=== PATIENT | male | born 1960 | race Caucasian/White ===

== ENCOUNTER 2018-09-11 12:25 | Inpatient (IN) | payer OTHER ==
[~2018-09-11] VITALS: Ht 170.2 cm; Wt 89.0 kg
--- NOTE | 2018-09-11 12:32 | ERD ---
ER Documentation Chief Complaint Chief Complaint cp HPI The patient is a 58-year-old male, presenting to the ER from outpatient [facility] surgery. The surgery completed about 1130am when he woke up with right- sided chest pain, denies similar symptoms previously. He denies chest pain with vomiting/radiation/exertion/diaphoresis, dyspnea, abdominal pain, vomiting, dysuria, diarrhea. He was well prior to surgery. He used to smoke until a year ago Past medical history: CAD, hypertension, dyslipidemia, right ankle fracture Past surgical history: 2 stent PCI, last stent was December 2016, appendectomy ROS All systems reviewed and are negative except as per history of present illness. Medications Home Meds Reported Medications Metoprolol Succinate* (Toprol XL*) 25 Mg Tab.sr.24h, 25 MG PO DAILY, #30 TAB 09/11/18 Clopidogrel Bisulfate* (Clopidogrel Bisulfate*) 75 Mg Tablet, 75 MG PO DAILY, #30 TAB 09/11/18 Atorvastatin Calcium* (Atorvastatin Calcium*) 20 Mg Tablet, 20 MG PO QHS, #30 TAB 09/11/18 Amlodipine Besylate* (Norvasc*) 5 Mg Tablet, 5 MG PO DAILY, TAB 09/11/18 Aspirin* (Aspirin* Chew) 81 Mg Tab.chew, 81 MG PO DAILY, TAB.CHEW 09/11/18 Lisinopril* (Lisinopril*) 20 Mg Tablet, 20 MG PO DAILY, #30 TAB 09/11/18 Allergies Allergies: Coded Allergies: No Known Allergy (Unverified , 09/11/18) Physical Exam Vitals Vital Signs Date Temp Pulse Resp B/P (MAP) Pulse Ox O2 O2 Flow FiO2 Time Delivery Rate 09/11/18 68 12 122/92 98 Room Air 14:00 (102) 09/11/18 68 15 127/92 98 Room Air 12:35 (104) 09/11/18 97.8 65 17 144/88 99 12:31 (106) Physical Exam Const: No acute distress. Head: Atraumatic. Eyes: Normal Conjunctiva. ENT: Normal External Ears, Nose and Mouth. Neck: Full range of motion. No meningismus. Resp: Clear to auscultation bilaterally. Cardio: Regular rate and rhythm. Abd: Soft, non distended, normal bowel sounds, non tender. Skin: No petechiae or rashes. Back: No midline or flank tenderness. Ext: Shoulder is immobilized, right leg with immobilizer Neur: Awake and alert. No focal deficit Psych: Normal Mood and Affect. Result Diagram: 09/11/18 1257 09/11/18 1257 Results 24 hrs Laboratory Tests Test 09/11/18 12:57 White Blood Count 12.3 10^3/ul Red Blood Count 4.67 10^6/ul Hemoglobin 14.0 g/dl Hematocrit 41.6 % Mean Corpuscular Volume 89.1 fl Mean Corpuscular Hemoglobin 30.0 pg Mean Corpuscular Hemoglobin Concent 33.7 g/dl Red Cell Distribution Width 12.5 % Platelet Count 209 10^3/UL Mean Platelet Volume 9.4 fl Immature Granulocytes % 0.400 % Neutrophils % 81.8 % Lymphocytes % 11.1 % Monocytes % 4.9 % Eosinophils % 1.6 % Basophils % 0.2 % Nucleated Red Blood Cells % 0.0 /100WBC Immature Granulocytes # 0.050 10^3/ul Neutrophils # 10.0 10^3/ul Lymphocytes # 1.4 10^3/ul Monocytes # 0.6 10^3/ul Eosinophils # 0.2 10^3/ul Basophils # 0.0 10^3/ul Nucleated Red Blood Cells # 0.0 10^3/ul D-Dimer 941.35 ng/ml D-Dimer Comment Sodium Level 141 mmol/L Potassium Level 4.7 mmol/L Chloride Level 107 mmol/L Carbon Dioxide Level 25 mmol/L Anion Gap 9 Blood Urea Nitrogen 19 mg/dl Creatinine 1.19 mg/dl Est Glomerular Filtrat Rate mL/min > 60 mL/min Glucose Level 112 mg/dl Calcium Level 9.5 mg/dl Troponin I < 0.012 ng/ml Procedures/[place] [address] Radiology Main Line: [phone] DIAGNOSTIC IMAGING REPORT Patient: TAYLOR EMERSON : 1960 Age: 58 Sex: M MR #: [id number] DOS: 09/11/18 1406 Ordering MD: KORI LEIJA MD Location: E/R Room/Bed: PROCEDURE: CTA Chest and pulmonary angiogram. CLINICAL INDICATION: Chest pain and shortness of breath TECHNIQUE: CTA scan of the chest and CT pulmonary angiogram was performed on a multidetector high-resolution CT scanner. Coronal and sagittal reformatted images were obtained. Three-dimensional post-processing, including maximum intensity projection, was performed. The patient was scanned following the uncomplicated intravenous administration of 100 cc of Omnipaque 350 contrast. DICOM images are available. CTDIvol 146.59 mGy, and DLP 824.82 mGy.cm. One or more of the following dose reduction techniques were used: - Automated exposure control. - Adjustment of the mA and/or kV according to patient size. - Use of iterative reconstruction technique. COMPARISON: DR MISHRA 09/11/2018 FINDINGS: CT CHEST: Lungs: Mild bronchial prominence of the lower lobes. Diffuse mild bronchial wall thickening, likely chronic inflammatory changes. Pleura: Normal. Mediastinum: No mediastinal masses. Cardiovascular: There are calcifications of the coronary arteries and thoracic aorta. Lymph nodes: No enlarged lymphadenopathy. Small calcification of the subcarinal lymph node, likely sequela of prior granulomatous disease.. Musculoskeletal: Degenerative changes of the spine. Upper abdomen: Normal. CT PULMONARY ANGIOGRAM: Pulmonary arteries: Normal caliber of the pulmonary arteries. No evidence of pulmonary embolism. IMPRESSION: 1. No evidence of pulmonary embolism. 2. Mild bronchial prominence of the bilateral lower lobes. Diffuse mild bronchial wall thickening. Findings likely related to chronic inflammatory changes. 3. Coronary artery calcifications. 4. No evidence of thoracic aortic aneurysm or dissection. RPTAT: AA Physician Rakesh Date Time Electronically viewed and signed by Miguel Vargas Physician on 09/11/2018 15:52 HtN/ CC: KORI LEIJA MD [id number] [place] [address] Radiology Main Line: [phone] DIAGNOSTIC IMAGING REPORT Patient: TAYLOR EMERSON : 1960 Age: 58 Sex: M MR #: [id number] DOS: 09/11/18 1238 Ordering MD: KORI LEIJA MD Location: E/R Room/Bed: PROCEDURE: XR Chest. CLINICAL INDICATION: Chest pain TECHNIQUE: Single portable view of the chest was obtained COMPARISON: None FINDINGS: The study is limited due to patient rotation. There is apparent enlargement of the cardiac silhouette. There is questionable widening of the superior mediastinum. The lungs are clear. There is no pleural effusion or pneumothorax. RPTAT: AA IMPRESSION: Limited study due to patient positioning and rotation. Questionable widening of the superior mediastinum. Possible mild cardiomegaly. Repeat study with a proper frontal view is recommended. .Taye Perkins MD, Date Time Electronically viewed and signed by .Taye Perkins MD, MD on 09/11/2018 13:12 .S/ CC: KORI LEIJA MD [phone] EKG: Read by emergency physician Rate/Rhythm: Normal Sinus Rhythm 66 beats/min QRS, ST, T-waves: No ST elevation, no T inversion, septal q's Impression: abnormal EKG MEDICAL MAKING DECISION: The patient is a 58 male, presented with acute chest pain, concerning for acute ACS, was treated with aspirin 160 mg p.o. for acute chest pain with good response. The differential diagnoses considered include but are not limited to postop pain, acute coronary syndrome, acute myocardial infarction, pericarditis, pulmonary embolism, aortic dissection, pneumonia, pleural effusion, pneumothorax, GERD, chest wall pain. Departure Diagnosis: Primary Impression: Chest pain Condition: Stable Comments I discussed the findings with the patient. I discussed the patient with the hospitalist Dr Torres who was made aware of the lab, the treatment, the patient condition. The patient is admitted to [facility] Disclaimer: Inadvertent spelling and grammatical errors are likely due to EHR/dictation software use and do not reflect on the overall quality of patient care. Also, please note that the electronic time recorded on this note does not necessarily reflect the actual time of the patient encounter. KORI LEIJA MD Sep 11, 2018 12:32
[2018-09-11] MEDS ORDERED: LISI-471 PO (14:09)
[2018-09-11] MEDS ORDERED: AMLO5TAB4 PO (14:09)
[2018-09-11] MEDS ORDERED: ASPI-903 PO (14:09)
[2018-09-11] MEDS ORDERED: ATOR20TA38 PO (14:10)
[2018-09-11] MEDS ORDERED: CLOP75TA19 PO (14:10)
[2018-09-11] MEDS ORDERED: METO-335 PO (14:11)
[2018-09-11] MEDS ORDERED: ASPIRIN 81 MG TAB PO ONE (15:00)
[2018-09-11] MEDS ORDERED: IOHEXOL 100 ML ONE (15:17)
[2018-09-11] MEDS ORDERED: SOD CHLORIDE 0.9% 100 ML ONE (15:17)
--- NOTE | 2018-09-11 15:32 | QN ---
Documentation Comment SEEN AND EXAMINED JENNIFER ALVAREZ MD Sep 11, 2018 15:32
[2018-09-11] MEDS ORDERED: DOCUSATE SODIUM 100 MG CAP PO PRN (16:00)
[2018-09-11] MEDS ORDERED: NACL 0.9% 3 ML SYG IV SCH (16:00)
[2018-09-11] MEDS ORDERED: ACETAMINOPHEN 325 MG TAB PO PRN (16:00)
[2018-09-11] MEDS ORDERED: ONDANSETRON 4 MG INJ IV PRN (16:00)
--- NOTE | 2018-09-11 16:02 | HP ---
DATE OF ADMISSION: 09/11/2018 REASON FOR ADMISSION: Chest pain. 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 The patient had a fall from a ladder 1 month ago. After that, he had an injury on the right ankle and also on the left elbow. The patient sustained an Achilles tendon injury on the right ankle and also had a left elbow injury. Patient said that he had to stop the Plavix 4 days before he went for surgery. Today, patient went for his elbow surgery with Dr. Sharma. He received anesthesia. The minute he woke up, he started having right-sided chest pain radiating to the right arm. lasting for few miinutes The patient denied any shortness of breath, any cough, any fevers and chills and was sent into the Emergency Department for further evaluation. Patient denies any orthopnea, PND, lower extremity edema. The patient said that he has been mostly sedentary since the injury about a month ago. PAST MEDICAL HISTORY: 1. Hypertension. 2. Hyperlipidemia. 3. Coronary artery disease, status post stents x3 in 2017 at [facility]. ALLERGIES: NONE. PAST SURGICAL HISTORY: Three stent PCI. Last stent was in December 2016, appendectomy. SOCIAL HISTORY: Used to smoke a year ago. Occasionally drinks alcohol. Denies any recreational drug use. MEDICATIONS TAKING AT HOME: 1. Aspirin 81. 2. Plavix 75 was stopped 4 days ago. 3. Norvasc 5. 4. Atorvastatin 20. 5. Lisinopril 20. 6. Metoprolol 25 daily. REVIEW OF SYSTEMS: The patient complained of right-sided chest pain like a pinching kind of pain radiating to the right shoulder. Denied any shortness of breath, any cough, any orthopnea, PND, lower extremity edema. Patient has injury to the right Achilles tendon and also had left elbow surgery today. Denies any hematemesis, any melena or blood per rectum. Denies any dizziness. PHYSICAL EXAMINATION: VITAL SIGNS: Currently, blood pressure 127/92, afebrile. Her respiratory rate 15, saturating 98%. GENERAL: The patient is awake, alert, oriented, does not appear to in any acute distress. HEENT: Pupils equal, round, react to light. NECK: Supple. No JVD. HEART: Regular rate and rhythm. LUNGS: Clear to auscultation bilaterally. ABDOMEN: Soft, nontender, nondistended, positive normoactive bowel sounds. EXTREMITIES: The patient has right lower extremity in cast and left elbow status post surgery. DIAGNOSTIC DATA: BMP within normal limit. Troponin less than 0.012. LABORATORY DATA: White count of 12.3, hemoglobin 14.0, platelet count 209. D- dimer is 941. Chest x-ray, some widening of superior mediastinum possible mild cardiomegaly. EKG: No acute ST-T wave changes. ASSESSMENT AND PLAN: This is a 58-year-old male who presented with: 1. Right-sided chest pain, status post left elbow surgery today. The patient has received general anesthesia. D-dimer is elevated. Need to rule out for pulmonary embolism. The patient also has history of coronary artery disease. Body was under stress after general anesthesia today. Need to rule out if patient had underlying ACS 2. Mild leukocytosis.? stress 3. Right achilles tendon injury s/p fall. 4. Left elbow surgery.on 09/11/18 5. Hypertension. 6. Hyperlipidemia. PLAN: At this period of time, the patient is admitted to telemetry. We will continue the patient on aspirin, not sure if patient can be restarted back on Plavix given the surgery today. CT angio is pending. Cardiology consultation will be obtained. Will get echo and serial troponins. We will also try to see if Ortho is available in this hospital. Rest of the treatment will depend on the patient's hospitalization course. Dictated By: JENNIFER MELVIN/PREMA Conf#: [id number] DID#: [id number] MTDD
[2018-09-11] MEDS: HYDROCODONE/APAP (5/325) TAB PO PRN ×2 (18:02→23:51)
[2018-09-11 19:43] VITALS: Ht 170.2 cm; Wt 89.0 kg
[2018-09-11 20:00] VITALS: BP 121/77; PULSE 72; PULSE 78; RESP 18
[2018-09-11] MEDS: ATORVASTATIN 20 MG TAB PO SCH (22:13)
[2018-09-12] VITALS (11 sets, daily range): BP systolic 118–179; BP diastolic 79–93; PULSE 66–84; RESP 18
[2018-09-12] MEDS ORDERED: ZOLPIDEM 5 MG TAB PO PRN (01:30)
[2018-09-12] MEDS: HYDROCODONE/APAP (5/325) TAB PO PRN (05:33)
[2018-09-12] MEDS: PANTOPRAZOLE (EC) 40 MG TAB PO SCH (05:33)
[2018-09-12] MEDS: morphine 2 MG INJ IV PRN ×2 (08:30→15:17)
[2018-09-12] MEDS: AMLODIPINE 5 MG TAB PO SCH (08:30)
[2018-09-12] MEDS: LISINOPRIL 20 MG TAB PO SCH (08:30)
[2018-09-12] MEDS: METOPROLOL (XL) 25 MG TAB PO SCH (08:30)
--- NOTE | 2018-09-12 12:57 | RADRPT ---
Vent Rate: 80 bpm RR Interval: 0 msec RI Interval: 164 msec QRS Duration: 84 msec QT Interval: 394 msec QTC Interval: 454 msec P-R-T [place]: 56 - 10 - 86 degrees Normal sinus rhythm Septal infarct , age undetermined Abnormal ECG Electronically Signed By: Juan Wesley
[2018-09-12] MEDS: SOD CHLORIDE 0.9% 1,000 ML IV SCH (13:27)
--- NOTE | 2018-09-12 13:46 | PN ---
Date/Time of Note Date/Time of Note DATE: 09/12/18 TIME: 13:43 Assessment/Plan VTE [place]axis [place] [facility] [place]: 11 [place]CD [place] [facility] [place] SCD contraindicated: low risk/ambulating Pharmacological prophylaxis: NA/contraindicated Pharm contraindication: low risk/ambulating Lines/Catheters IV C[facility] Type [facility]from [facility] Saline Lock Assessment/Plan Hospital Course 58-year-old male who presented with: 1. Right-sided chest pain, status post left elbow surgery on 09/11/18 The patient has received general anesthesia. D-dimer is elevated. CT ANGIO neg for PE . The patient also has history of coronary artery disease. Need to rule out if patient had underlying ACS. Trop neg so far 2. Mild leukocytosis. 3. Right ankle injury status post fall 4. Left elbow surgery.fall 5. Hypertension. 6. Hyperlipidemia. 7 Mild Rhabdo Plan - iv fluids - pain control - cw ASA/Plavix/statin/MTP - stress test tmw per cards - cw amlodipine/lisnopril - GI/DVT prophlyaxsis Result Diagram: 09/11/18 1257 09/11/18 1257 Results 24hrs Laboratory Tests Test 09/11/18 18:55 09/11/18 21:14 09/12/18 05:28 Creatine Kinase 1099 H 1313 H 1592 H Creatine Kinase Index 0.1 0.1 0.1 Creatinine Kinase MB (Mass) 1.07 1.11 1.80 Troponin I < 0.012 < 0.012 < 0.012 Phosphorus Level 4.3 Magnesium Level 2.1 Triglycerides Level 127 Cholesterol Level 151 LDL Cholesterol, Calculated 89 HDL Cholesterol 37 Cholesterol/HDL Ratio 4.0 Subjective 24 Hr Interval Summary Free Text/Dictation no cp pain in elbow Exam/Review of Systems Exam Vitals Vital Signs Date Temp Pulse Resp B/P (MAP) Pulse Ox O2 O2 Flow FiO2 Time Delivery Rate 09/12/18 78 12:50 09/12/18 98.7 18 127/91 97 11:29 (103) 09/11/18 Room Air 18:00 Intake and Output 09/11/18 09/11/18 09/12/18 1515:00 23:00 07:00 IntakeIntake Total 500 ml BalanceBalance 500 ml Exam ENERAL: The patient is awake, alert, oriented, does not appear to in any acute distress. HEENT: Pupils equal, round, react to light. NECK: Supple. No JVD. HEART: Regular rate and rhythm. LUNGS: Clear to auscultation bilaterally. ABDOMEN: Soft, nontender, nondistended, positive normoactive bowel sounds. EXTREMITIES: The patient has right lower extremity in cast now off and left elbow status post surgery. Results Results 24hrs Laboratory Tests Test 09/11/18 18:55 09/11/18 21:14 09/12/18 05:28 Creatine Kinase 1099 H 1313 H 1592 H Creatine Kinase Index 0.1 0.1 0.1 Creatinine Kinase MB (Mass) 1.07 1.11 1.80 Troponin I < 0.012 < 0.012 < 0.012 Phosphorus Level 4.3 Magnesium Level 2.1 Triglycerides Level 127 Cholesterol Level 151 LDL Cholesterol, Calculated 89 HDL Cholesterol 37 Cholesterol/HDL Ratio 4.0 Medications Medication Current Medications IV Flush (NS 3 ml) 3 ml PER PROTOCOL IV ; Start 09/11/18 at 16:00 Ondansetron HCl (Zofran Inj) 4 mg Q6H PRN IV NAUSEA/VOMITING; Start 09/11/18 at 16:00 Acetaminophen (Tylenol Tab) 650 mg Q6H PRN PO .PAIN 1-3 OR TEMP; Start 09/11/18 at 16:00 Acetaminophen/ Hydrocodone Bitart ([place] (5/325)) 1 tab Q6H PRN PO .MOD PAIN 4- 6 Last administered on 09/12/18at 05:33; Admin Dose 1 TAB; Start 09/11/18 at 16:00 Docusate Sodium (Colace) 100 mg Q12H PRN PO .CONSTIPATION; Start 09/11/18 at 16:00 Pantoprazole (Protonix Tab) 40 mg DAILY@06 PO Last administered on 09/12/18at 05:33; Admin Dose 40 MG; Start 09/12/18 at 06:00 Amlodipine Besylate (Norvasc) 5 mg DAILY PO Last administered on 09/12/18at 08:30; Admin Dose 5 MG; Start 09/12/18 at 09:00 Atorvastatin Calcium (Lipitor) 20 mg QHS PO Last administered on 09/11/18at 22:13; Admin Dose 20 MG; Start 09/11/18 at 21:00 Lisinopril (Zestril) 20 mg DAILY PO Last administered on 09/12/18 08:30; Admin Dose 20 MG; Start 09/12/18 at 09:00 Metoprolol Succinate (Toprol Xl) 25 mg DAILY PO Last administered on 09/12/18 08:30; Admin Dose 25 MG; Start 09/12/18 at 09:00 Zolpidem Tartrate (Ambien) 5 mg HS PRN PO INSOMNIA Last administered on 09/12/18 01:46; Admin Dose 5 MG; Start 09/12/18 at 01:30 Morphine Sulfate (morphine) 2 mg Q4H PRN IV SEVERE PAIN LEVEL 7-10 Last administered on 09/12/18 08:30; Admin Dose 2 MG; Start 09/12/18 at 06:30 Sodium Chloride 1,000 ml @ 70 mls/hr [id number] IV Last administered on 09/12/18 13:27; Admin Dose 70 MLS/HR; Start 09/12/18 at 11:30 Cephalexin (Keflex) 250 mg Q6 PO ; Start 09/12/18 at 18:00; Status UNJENNIFER YI MD Sep 12, 2018 13:46
--- NOTE | 2018-09-12 14:14 | CONS ---
DATE OF ADMISSION: 09/11/2018 DATE OF CONSULTATION: 09/12/2018 TYPE OF CONSULTATION: Cardiology. REASON FOR CONSULTATION: Chest pain, assess for acute coronary syndrome. REQUESTING PHYSICIAN: Chen Alvarez MD HISTORY OF PRESENT ILLNESS: Mr. Wang is a 58-year-old male with a history of hypertension, dyslipid emia, coronary artery disease, status post PTCA and stent placement x3 [address] [facility], who stat es that he was on a ladder and sustained fall tearing his Achilles tendon and hurt his ankle and havi ng a left elbow injury. The patient subsequently underwent an outpatient surgery today and post-surg lorenzo had a right-sided chest pain and therefore was transferred here to [facility]. Upon arrival, temperature of 97.8, blood pressure 144/88, pulse 65, respiratory rate of 17, satting 99%. The patient's labs were notable for white blood cell count of 12.3, hemoglobin 14.0, platelet c ount 209, sodium 141, potassium 4.7, creatinine 1.1, BUN 19, troponin negative, LDL 89, HDL 37. The patient underwent a chest x-ray revealing limited study due to patient positioning and rotation, ques tionable widening of superior mediastinum and possible mild cardiomegaly and a CTA that revealed no e vidence of pulmonary embolism, mild bronchial prominence of bilateral lower lobes, diffuse mild bronc hial wall thickening. The patient's electrocardiogram revealed normal sinus rhythm, rate of 66, norm al axis, normal intervals with lateral T-wave inversion. The patient was subsequently admitted to e floor and since admit to the floor, denies ongoing chest pain, has had negative troponins greater t seymour 3. PAST MEDICAL HISTORY: As above in HPI. MEDICATIONS CURRENTLY IN HOSPITAL: 1. Norvasc 5 mg daily. 2. Zestril 10 mg daily. 3. Toprol-XL 25 mg daily. 4. Ambien p.r.n. 5. Lipitor 20 mg at bedtime. 6. Tylenol p.r.n. 7. Hoffman p.r.n. 8. Colace p.r.n. ALLERGIES: NO KNOWN DRUG ALLERGIES. SOCIAL HISTORY: No current tobacco, EtOH or illicit drug use. FAMILY HISTORY: No history of sudden cardiac or early CAD. REVIEW OF SYSTEMS: As above in HPI. CONSTITUTIONAL: No fevers, chills. PULMONARY: No current shortness of breath. CARDIOVASCULAR: No current chest pain. GASTROINTESTINAL: No vomiting. GENITOURINARY: No hematuria. MUSCULOSKELETAL: Left elbow surgery, covered by cast. PHYSICAL EXAMINATION: VITAL SIGNS: Temperature 98.4, blood pressure 118/79, pulse 71, respiratory rate 18, satting 98%. GENERAL: The patient is alert, awake, complaining of left elbow pain. NECK: JVP is approximately 8 to 9 cm of water. CHEST: Fair air movement throughout. HEART: Regular rate and rhythm. Normal S1, S2, I/ systolic murmur, nondisplaced PMI. ABDOMEN: Positive bowel sounds, soft. EXTREMITIES: Trace pitting edema in right lower extremity, 1+ pulses bilateral posterior tibial. LABORATORY DATA: As above in HPI. No further labs for my review at this time. IMAGING STUDIES: As above in HPI. No further imaging studies for my review at this time. ELECTROCARDIOGRAM: As above in HPI. No further electrocardiograms for my review at this time. IMPRESSION: 1. Chest pain, assess for acute coronary syndrome. Negative troponins greater than 3. No chest aries n at this time. 2. Abnormal electrocardiogram with lateral T-wave inversion. 3. History of PTCA and stent placement x3, most recently to 2017. 4. Hypertension. 5. Dyslipidemia. 6. Status post recent fall, traumatic. 7. Postop day #1 status post left elbow surgery. RECOMMENDATIONS: 1. At this time, we would maintain the patient on telemetry monitoring to follow rhythm and rates cl osely. 2. We would continue the patient's baseline beta-fanny, COTY inhibitor, Norvasc, controlling blood pressure and antianginal effects. 3. Continue the patient's current statin. 4. We will follow the patient's 2D echo for assessment of ejection fraction, wall motion, rule out a ny major valve abnormalities. 5. We will repeat EKG this morning to assess for any significant changes and for ongoing chest pain, consider stress testing inpatient versus outpatient. 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 Thank you for allowing me to take part in the care of this patient. I will continue to follow him al lakshmi very closely with you with further recommendations will be made as the patient progresses through his inpatient hospital clinical course. Dictated By: CHAVO MOLINA/PREMA Conf#: [id number] DID#: [id number] CC: FELIPA PHILIPPE MD; CHEN ALVAREZ;*EndCC*
[2018-09-12] MEDS: ASPIRIN 81 MG TAB PO SCH (15:14)
[2018-09-12] MEDS: CEPHALEXIN 250 MG CAP PO SCH ×2 (17:09→23:22)
[2018-09-12] MEDS: ATORVASTATIN 20 MG TAB PO SCH (21:34)
--- NOTE | 2018-09-12 23:46 | RADRPT ---
Echocardiogram Report Patient Name: Victor Hugo EMERSONtient ID: [id number] : 1960 (58y 8m)Study Date: 09/12/2018 8:13:03 AM Gender: MAccession #: [id number] Tech: DE Location: Ref.Physician: JENNIFER ALVAREZ Height(Cm): BSA: Weight(Kg): Quality: GoodAccount #: Procedures: Echocardiographic Report: Transthoracic echocardiogram with complete 2D, M-Mode, and doppler examination. Indications: Chest Pain. Measurements: 2D/M Mode Doppler Measurement Value Normal Range Measurement Value Normal Range LVIDd 2D 3.7 [ 4.2 - 5.8 ] cm CHRIS VTI 2.8 [ 2.0 - 4.0 ] cm2 LVIDs 2D 2.8 [ 2.5 - 4.0 ] cm AV Mean Ronnie 1.3 [ 70.0 - 90.0 ] cm/sec LVPWd 2D 1.5 [ 0.6 - 1.0 ] cm AV Mean PG 8.0 [ 2.0 - 4.0 ] mmHg IVSd 2D 1.5 [ 0.6 - 1.0 ] cm AV Peak Ronnie 2.0 [ 100.0 - 170.0 ] cm/sec AoR Diam 2D 3.2 [ 2.6 - 3.4 ] cm AV Peak PG 17.0 [ 2.0 - 9.0 ] mmHg EDV 2D 57.0 [ 62.0 - 150.0 ] ml AV VTI 41.8 cm ESV 2D 30.3 [ 21.0 - 61.0 ] ml LVOT Mean Ronnie 1.1 [ 60.0 - 80.0 ] cm/sec EF 2D 46.8 [ 52.0 - 72.0 ] percent LVOT Mean PG 6.0 [ 1.0 - 3.0 ] mmHg LA Dimen 2D 3.3 [ 3.0 - 4.0 ] cm LVOT Peak Ronnie 1.8 [ 70.0 - 110.0 ] cm/sec LVOT Diam 1.9 [ 2.3 - 2.9 ] cm LVOT Peak PG 13.0 [ 2.0 - 6.0 ] mmHg LVOT VTI 41.8 [ 20.0 - 30.0 ] cm MV E Peak Ronnie 0.7 [ 60.0 - 130.0 ] cm/sec MV A Peak Ronnie 0.9 [ 100.0 - 120.0 ] cm/sec MV E/A 0.8 [ 0.8 - 1.5 ] ratio MV Decel Time 215 [ 104 - 258 ] msec Lat E` Ronnie 0.1 [ 10.0 - 15.0 ] cm/sec Lateral E/E` 10.1 [ 1.0 - 2.0 ] ratio MV E/A 0.8 [ 0.8 - 1.5 ] ratio Findings: Left Ventricle: Normal left ventricular systolic function. Normal left ventricular cavity size. Moderate concentric left ventricular hypertrophy. Ejection fraction is visually estimated at 60-65 %. Tissue Doppler/Mitral Doppler indices are consistent with impaired relaxation (Stage I diastolic dysfunction). Right Ventricle: Normal right ventricular size. Normal right ventricular systolic function. Left Atrium: The left atrium is normal in size. Right Atrium: The right atrium is normal in size. Mitral Valve: Mitral valve leaflets appear mildly thickened. Mild mitral annular calcification. Moderate mitral valve regurgitation. Aortic Valve: Normal appearance of the aortic valve. No significant aortic stenosis or insufficiency. Aortic valve Max velocity 2.05 m/sec. Max PG 19.00 mmHg. Mean PG 8.00 mmHg. Aortic sclerosis without significant stenosis. Tricuspid Valve: Normal appearance and function of the tricuspid valve with trace physiologic regurgitation. Normal right ventricular systolic pressure. Pulmonic Valve: Pulmonic valve not well visualized. Pericardium: Normal pericardium with no significant pericardial effusion. Aorta: Normal aortic root. IVC: Normal size and normal respiratory collapse consistent with normal right atrial pressure. Conclusions: Normal left ventricular systolic function. Normal left ventricular cavity size. Moderate concentric left ventricular hypertrophy. Ejection fraction is visually estimated at 60-65 %. Tissue Doppler/Mitral Doppler indices are consistent with impaired relaxation (Stage I diastolic dysfunction). Mitral valve leaflets appear mildly thickened. Mild mitral annular calcification. Moderate mitral valve regurgitation. Normal appearance and function of the tricuspid valve with trace physiologic regurgitation. Normal right ventricular systolic pressure. Electronically Signed By: Nikita Jackson 2018-09-12 23:45:21 PDT
[2018-09-13] VITALS (13 sets, daily range): BP systolic 105–137; BP diastolic 69–89; PULSE 57–78; RESP 18
[2018-09-13] MEDS: PANTOPRAZOLE (EC) 40 MG TAB PO SCH (05:55)
[2018-09-13] MEDS: CEPHALEXIN 250 MG CAP PO SCH ×4 (05:55→23:29)
[2018-09-13] MEDS: SOD CHLORIDE 0.9% 1,000 ML IV SCH ×2 (05:56→16:06)
[2018-09-13] MEDS: AMLODIPINE 5 MG TAB PO SCH (08:37)
[2018-09-13] MEDS: LISINOPRIL 20 MG TAB PO SCH (08:38)
[2018-09-13] MEDS: METOPROLOL (XL) 25 MG TAB PO SCH (08:38)
[2018-09-13] MEDS: ASPIRIN 81 MG TAB PO SCH (08:39)
[2018-09-13] MEDS ORDERED: REGADENOSON 0.4 MG/5 ML SYG ONE (10:35)
--- NOTE | 2018-09-13 10:56 | PN ---
Date/Time of Note Date/Time of Note DATE: 09/13/18 TIME: 10:51 Assessment/Plan VTE Prophylaxis Risk score (from Ns)>0 risk: 4 SCD applied (from Ns): Yes VTE Confirmed-Overlap Tx Rcvd Pt Rcvd Overlap Therapy: No Reason for no Overlap Therapy: Therapeutic INR Lines/Catheters IV Catheter Type (from Nrsg): Peripheral IV Assessment/Plan Assessment/Plan please do not change my post op long arm splint. Result Diagram: 09/11/18 1257 09/11/18 1257 Results 24hrs Laboratory Tests Test 09/13/18 05:40 Triglycerides Level 124 Cholesterol Level 146 LDL Cholesterol, Calculated 88 HDL Cholesterol 33 Cholesterol/HDL Ratio 4.4 Subjective 24 Hr Interval Summary Free Text/Dictation 09 13 18 This patient is two days post op reattachment of the medial epicondyle left el bow He is in a long arm splint my plan is to change the splint at one week Please do not alter or remove this splint. Please send him to my office next week following discharge nataliya Constitutional: no complaints, improved Exam/Review of Systems Exam Vitals Vital Signs Date Temp Pulse Resp B/P (MAP) Pulse Ox O2 O2 Flow FiO2 Time Delivery Rate 09/13/18 76 08:05 09/13/18 98.5 18 133/80 97 07:51 (97) 09/11/18 Room Air 18:00 Intake and Output 09/12/18 09/12/18 09/13/18 1515:00 23:00 07:00 IntakeIntake Total 1670 ml BalanceBalance 1670 ml Results Results 24hrs Laboratory Tests Test 09/13/18 05:40 Triglycerides Level 124 Cholesterol Level 146 LDL Cholesterol, Calculated 88 HDL Cholesterol 33 Cholesterol/HDL Ratio 4.4 Medications Medication Current Medications IV Flush (NS 3 ml) 3 ml PER PROTOCOL IV ; Start 09/11/18 at 16:00 Ondansetron HCl (Zofran Inj) 4 mg Q6H PRN IV NAUSEA/VOMITING; Start 09/11/18 at 16:00 Acetaminophen (Tylenol Tab) 650 mg Q6H PRN PO .PAIN 1-3 OR TEMP; Start 09/11/18 at 16:00 Acetaminophen/ Hydrocodone Bitart ([place] (5/325)) 1 tab Q6H PRN PO .MOD PAIN 4- 6 Last administered on 09/12/18 05:33; Admin Dose 1 TAB; Start 09/11/18 at 16:00 Docusate Sodium (Colace) 100 mg Q12H PRN PO .CONSTIPATION; Start 09/11/18 at 16:00 Pantoprazole (Protonix Tab) 40 mg DAILY@06 PO Last administered on 09/13/18 05:55; Admin Dose 40 MG; Start 09/12/18 at 06:00 Amlodipine Besylate (Norvasc) 5 mg DAILY PO Last administered on 09/13/18 08:37; Admin Dose 5 MG; Start 09/12/18 at 09:00 Atorvastatin Calcium (Lipitor) 20 mg QHS PO Last administered on 09/12/18 21:34; Admin Dose 20 MG; Start 09/11/18 at 21:00 Lisinopril (Zestril) 20 mg DAILY PO Last administered on 09/13/18 08:38; Admin Dose 20 MG; Start 09/12/18 at 09:00 Metoprolol Succinate (Toprol Xl) 25 mg DAILY PO Last administered on 09/13/18 08:38; Admin Dose 25 MG; Start 09/12/18 at 09:00 Zolpidem Tartrate (Ambien) 5 mg HS PRN PO INSOMNIA Last administered on 09/12/18 01:46; Admin Dose 5 MG; Start 09/12/18 at 01:30 Morphine Sulfate (morphine) 2 mg Q4H PRN IV SEVERE PAIN LEVEL 7-10 Last administered on 09/12/18 15:17; Admin Dose 2 MG; Start 09/12/18 at 06:30 Sodium Chloride 1,000 ml @ 70 mls/hr [id number] IV Last administered on 09/13/18 05:56; Admin Dose 70 MLS/HR; Start 09/12/18 at 11:30 Cephalexin (Keflex) 250 mg Q6 PO Last administered on 09/13/18 05:55; Admin Dose 250 MG; Start 09/12/18 at 18:00 Aspirin (Aspirin) 81 mg DAILY PO Last administered on 09/13/18 08:39; Admin Dose 81 MG; Start 09/12/18 at 14:00 FELIPA PHILIPPE MD Sep 13, 2018 10:56
--- NOTE | 2018-09-13 11:20 | CONS ---
Assessment/Plan Assessment/Plan Hospital Course (Demo Recall) IMPRESSION: 1. Chest pain, assess for acute coronary syndrome. Negative troponins greater than 3. No chest pain at this time. 2. Abnormal electrocardiogram with lateral T-wave inversion. 3. History of PTCA and stent placement x3, most recently to 2017. 4. Hypertension. 5. Dyslipidemia. 6. Status post recent fall, traumatic. 7. Postop day #1 status post left elbow surgery. Recc: -Tele -serial ecg's -Lexiscan stres test today -Continue asa/statin -Contineu norvasc/BB/ACEI Consultation Date/Type/Reason Admit Date/Time Sep 11, 2018 at 14:56 Initial Consult Date 09/12/18 Type of Consult Cardiology Reason for Consultation chest pain Requesting Provider: JENNIFER ALVAREZ MD Date/Time of Note DATE: 09/13/18 TIME: 11:17 Exam/Review of Systems Vital Signs Vitals Vital Signs Date Temp Pulse Resp B/P (MAP) Pulse Ox O2 O2 Flow FiO2 Time Delivery Rate 09/13/18 76 08:05 09/13/18 98.5 18 133/80 97 07:51 (97) 09/11/18 Room Air 18:00 Intake and Output 09/12/18 09/12/18 09/13/18 1515:00 23:00 07:00 IntakeIntake Total 1670 ml BalanceBalance 1670 ml Exam Exam Review of Systems: CONSTITUTIONAL: No fevers, chills. PULMONARY: No sob CARDIOVASCULAR: No chest pain/palpitations GASTROINTESTINAL: No nausea/vomiting. GENITOURINARY: No hematuria/dysuria. MUSCULOSKELETAL: No myagias/arthalgias. PSYCHIATRIC: The patient denies depression. NEUROLOGIC: No weakness Constitutional: alert Psych: no complaints Head: normocephalic ENMT: mucosa pink and moist Neck: supple, jvd (9 cm water) Respiratory: diminished breath sounds (at bases/B) Cardiovascular: regular rate and rhythm Gastrointestinal: soft, non-tender Musculoskeletal: muscle tone (normal) Extremities: edema (none) Neurological: other (No focal deficits) Labs Result Diagram: 09/11/18 1257 09/11/18 1257 Results 24hrs Laboratory Tests Test 09/13/18 05:40 Triglycerides Level 124 Cholesterol Level 146 LDL Cholesterol, Calculated 88 HDL Cholesterol 33 Cholesterol/HDL Ratio 4.4 Medications Medications Current Medications IV Flush (NS 3 ml) 3 ml PER PROTOCOL IV ; Start 09/11/18 at 16:00 Ondansetron HCl (Zofran Inj) 4 mg Q6H PRN IV NAUSEA/VOMITING; Start 09/11/18 at 16:00 Acetaminophen (Tylenol Tab) 650 mg Q6H PRN PO .PAIN 1-3 OR TEMP; Start 09/11/18 at 16:00 Acetaminophen/ Hydrocodone Bitart ([place] (5/325)) 1 tab Q6H PRN PO .MOD PAIN 4- 6 Last administered on 09/12/18 05:33; Admin Dose 1 TAB; Start 09/11/18 at 16:00 Docusate Sodium (Colace) 100 mg Q12H PRN PO .CONSTIPATION; Start 09/11/18 at 16:00 Pantoprazole (Protonix Tab) 40 mg DAILY@06 PO Last administered on 09/13/18 05:55; Admin Dose 40 MG; Start 09/12/18 at 06:00 Amlodipine Besylate (Norvasc) 5 mg DAILY PO Last administered on 09/13/18 08:37; Admin Dose 5 MG; Start 09/12/18 at 09:00 Atorvastatin Calcium (Lipitor) 20 mg QHS PO Last administered on 09/12/18 21:34; Admin Dose 20 MG; Start 09/11/18 at 21:00 Lisinopril (Zestril) 20 mg DAILY PO Last administered on 09/13/18 08:38; Admin Dose 20 MG; Start 09/12/18 at 09:00 Metoprolol Succinate (Toprol Xl) 25 mg DAILY PO Last administered on 09/13/18 08:38; Admin Dose 25 MG; Start 09/12/18 at 09:00 Zolpidem Tartrate (Ambien) 5 mg HS PRN PO INSOMNIA Last administered on 09/12/18 01:46; Admin Dose 5 MG; Start 09/12/18 at 01:30 Morphine Sulfate (morphine) 2 mg Q4H PRN IV SEVERE PAIN LEVEL 7-10 Last administered on 09/12/18 15:17; Admin Dose 2 MG; Start 09/12/18 at 06:30 Sodium Chloride 1,000 ml @ 70 mls/hr [id number] IV Last administered on 09/13/18 05:56; Admin Dose 70 MLS/HR; Start 09/12/18 at 11:30 Cephalexin (Keflex) 250 mg Q6 PO Last administered on 09/13/18 05:55; Admin Dose 250 MG; Start 09/12/18 at 18:00 Aspirin (Aspirin) 81 mg DAILY PO Last administered on 09/13/18 08:39; Admin Dose 81 MG; Start 09/12/18 at 14:00 CHAVO ESPARZA Sep 13, 2018 11:20
--- NOTE | 2018-09-13 14:49 | PN ---
Date/Time of Note Date/Time of Note DATE: 09/13/18 TIME: 14:45 Assessment/Plan VTE Prophylaxis Risk score (from Ns)>0 risk: 4 SCD applied (from Ns): Yes Pharmacological prophylaxis: NA/contraindicated Pharm contraindication: low risk/ambulating Lines/Catheters IV Catheter Type (from [facility]): Peripheral IV Assessment/Plan Hospital Course 58-year-old male who presented with: 1. Right-sided chest pain, status post left elbow surgery on 09/11/18 The patient has received general anesthesia. D-dimer is elevated. CT ANGIO neg for PE . The patient also has history of coronary artery disease. Need to rule out if patient had underlying ACS. Trop neg so far 2. Mild leukocytosis. 3. Right ankle injury status post fall 4. Left elbow surgery.fall 5. Hypertension. 6. Hyperlipidemia. 7 Mild Rhabdo Plan - Stress test +reversible ischemia? artifact - spoke to cards of possible angiogram > want to ask Dr Sharma if ok with full anticoagulation - iv fluids - pain control - cw ASA/statin/MTP - cw amlodipine/lisnopril - GI/DVT prophlyaxsis Result Diagram: 09/11/18 1257 09/11/18 1257 Results 24hrs Laboratory Tests Test 09/13/18 05:40 Triglycerides Level 124 Cholesterol Level 146 LDL Cholesterol, Calculated 88 HDL Cholesterol 33 Cholesterol/HDL Ratio 4.4 Subjective 24 Hr Interval Summary Free Text/Dictation stress test + reversible ischemia ? artifact Exam/Review of Systems Exam Vitals Vital Signs Date Temp Pulse Resp B/P (MAP) Pulse Ox O2 O2 Flow FiO2 Time Delivery Rate 09/13/18 98.2 70 18 137/89 95 12:28 (105) 09/11/18 Room Air 18:00 Intake and Output 09/12/18 09/12/18 09/13/18 1515:00 23:00 07:00 IntakeIntake Total 1670 ml BalanceBalance 1670 ml Exam ENERAL: The patient is awake, alert, oriented, does not appear to in any acute distress. HEENT: Pupils equal, round, react to light. NECK: Supple. No JVD. HEART: Regular rate and rhythm. LUNGS: Clear to auscultation bilaterally. ABDOMEN: Soft, nontender, nondistended, positive normoactive bowel sounds. EXTREMITIES: The patient has right lower extremity in cast now off and left elbow status post surgery. Results Results 24hrs Laboratory Tests Test 09/13/18 05:40 Triglycerides Level 124 Cholesterol Level 146 LDL Cholesterol, Calculated 88 HDL Cholesterol 33 Cholesterol/HDL Ratio 4.4 Medications Medication Current Medications IV Flush (NS 3 ml) 3 ml PER PROTOCOL IV ; Start 09/11/18 at 16:00 Ondansetron HCl (Zofran Inj) 4 mg Q6H PRN IV NAUSEA/VOMITING; Start 09/11/18 at 16:00 Acetaminophen (Tylenol Tab) 650 mg Q6H PRN PO .PAIN 1-3 OR TEMP; Start 09/11/18 at 16:00 Acetaminophen/ Hydrocodone Bitart ([place] (5/325)) 1 tab Q6H PRN PO .MOD PAIN 4- 6 Last administered on 09/12/18at 05:33; Admin Dose 1 TAB; Start 09/11/18 at 16:00 Docusate Sodium (Colace) 100 mg Q12H PRN PO .CONSTIPATION; Start 09/11/18 at 16:00 Pantoprazole (Protonix Tab) 40 mg DAILY@06 PO Last administered on 09/13/18at 05:55; Admin Dose 40 MG; Start 09/12/18 at 06:00 Amlodipine Besylate (Norvasc) 5 mg DAILY PO Last administered on 09/13/18at 08:37; Admin Dose 5 MG; Start 09/12/18 at 09:00 Atorvastatin Calcium (Lipitor) 20 mg QHS PO Last administered on 09/12/18at 21:34; Admin Dose 20 MG; Start 09/11/18 at 21:00 Lisinopril (Zestril) 20 mg DAILY PO Last administered on 09/13/18at 08:38; Admin Dose 20 MG; Start 09/12/18 at 09:00 Metoprolol Succinate (Toprol Xl) 25 mg DAILY PO Last administered on 09/13/18at 08:38; Admin Dose 25 MG; Start 09/12/18 at 09:00 Zolpidem Tartrate (Ambien) 5 mg HS PRN PO INSOMNIA Last administered on 09/12/18 at 01:46; Admin Dose 5 MG; Start 09/12/18 at 01:30 Morphine Sulfate (morphine) 2 mg Q4H PRN IV SEVERE PAIN LEVEL 7-10 Last administered on 09/12/18at 15:17; Admin Dose 2 MG; Start 09/12/18 at 06:30 Sodium Chloride 1,000 ml @ 70 mls/hr [id number] IV Last administered on 09/13/18at 05:56; Admin Dose 70 MLS/HR; Start 09/12/18 at 11:30 Cephalexin (Keflex) 250 mg Q6 PO Last administered on 09/13/18at 12:01; Admin Dose 250 MG; Start 09/12/18 at 18:00 Aspirin (Aspirin) 81 mg DAILY PO Last administered on 09/13/18at 08:39; Admin Dose 81 MG; Start 09/12/18 at 14:00 JENNIFER ALVAREZ MD Sep 13, 2018 14:48
--- NOTE | 2018-09-13 15:53 | CONS ---
DATE OF ADMISSION: 09/11/2018 DATE OF CONSULTATION: 09/13/2018 TYPE OF PROCEDURE: Lexiscan Cardiolite stress test, electrocardiogram portion. REASON FOR STRESS TESTING: Chest pain, assess for ischemia. BASELINE VITAL SIGNS AND ELECTROCARDIOGRAM: Pulse 68, blood pressure 134/82. Electrocardiogram reve als sinus bradycardia, rate 58, normal axis, normal intervals with inferior deep T-wave inversions. DESCRIPTION OF PROCEDURE: The patient underwent standard Lexiscan infusion protocol over 10 seconds followed by radiolabeled tracer. The patient's test was stopped due to completion of protocol. Maxi mal achieved blood pressure during the test was 116/73. Maximum heart rate during the test was 81. ELECTROCARDIOGRAM FINDINGS: The patient did not develop any new Lexiscan-induced ST or T-wave change s from baseline abnormalities. No documented PVCs. SYMPTOMS: The patient had complaints of mild shortness breath during stress testing which resolved i n recovery. No chest pain. IMPRESSION: 1. No Lexiscan-induced ST or T-wave changes from baseline abnormalities diagnostic of cardiac ischem ia. 2. No complaints of chest pain during stress testing. 3. Positive shortness of breath during stress test that resolved in recovery. 4. No documented premature ventricular contractions during stress testing. 5. Report of nuclear images to follow in separate dictation. Dictated By: CHAVO MOLINA/PREMA Conf#: [id number] DID#: [id number] CC: FELIPA PHILIPPE MD; JENNIFER ALVAREZ;*EndCC*
[2018-09-13] MEDS: ATORVASTATIN 20 MG TAB PO SCH (21:27)
[2018-09-14] VITALS (11 sets, daily range): BP systolic 109–156; BP diastolic 73–92; PULSE 58–74; RESP 18–22
[2018-09-14] MEDS: CEPHALEXIN 250 MG CAP PO SCH ×4 (06:00→17:40)
[2018-09-14] MEDS: PANTOPRAZOLE (EC) 40 MG TAB PO SCH (06:00)
[2018-09-14] MEDS: SOD CHLORIDE 0.9% 1,000 ML IV SCH (06:35)
[2018-09-14] MEDS: AMLODIPINE 5 MG TAB PO SCH (08:21)
[2018-09-14] MEDS: METOPROLOL (XL) 25 MG TAB PO SCH (08:21)
[2018-09-14] MEDS: LISINOPRIL 20 MG TAB PO SCH (08:21)
[2018-09-14] MEDS: ASPIRIN 81 MG TAB PO SCH (08:23)
[2018-09-14] MEDS ORDERED: DIPHENHYDRAMINE 50 MG CAP PO ONE (10:00)
[2018-09-14] MEDS ORDERED: DIAZEPAM 5 MG TAB PO ONE (10:00)
--- NOTE | 2018-09-14 15:55 | PN ---
Date/Time of Note Date/Time of Note DATE: 09/14/18 TIME: 15:54 Assessment/Plan VTE Prophylaxis Risk score (from [facility])>0 risk: 3 SCD applied (from [facility]): No SCD contraindicated: low risk/ambulating Pharmacological prophylaxis: NA/contraindicated Pharm contraindication: low risk/ambulating Lines/Catheters IV [facility]ter Type ([facility] Peripheral IV Assessment/Plan Hospital Course 58-year-old male who presented with: 1. Right-sided chest pain, status post left elbow surgery on 09/11/18 The patient has received general anesthesia. D-dimer is elevated. CT ANGIO neg for PE . The patient also has history of coronary artery disease. Need to rule out if patient had underlying ACS. Trop neg so far 2. Mild leukocytosis. 3. Right ankle injury status post fall 4. Left elbow surgery.fall 5. Hypertension. 6. Hyperlipidemia. 7 Mild Rhabdo Plan - Stress test +reversible ischemia? artifact - spoke to cards of possible angiogram > want to ask Dr Sharma if ok with full anticoagulation, but before is okay with full current anticoagulation angiogram will likely be on Monday - pain control - cw ASA/statin/MTP - cw amlodipine/lisnopril - GI/DVT prophlyaxsis Result Diagram: 09/14/18 0553 09/14/18 0553 Results 24hrs Laboratory Tests Test 09/14/18 05:53 White Blood Count 5.7 # Red Blood Count 4.11 L Hemoglobin 12.4 L Hematocrit 36.4 L Mean Corpuscular Volume 88.6 Mean Corpuscular Hemoglobin 30.2 Mean Corpuscular Hemoglobin Concent 34.1 Red Cell Distribution Width 12.4 Platelet Count 176 Mean Platelet Volume 9.9 Immature Granulocytes % 0.400 Neutrophils % 56.5 Lymphocytes % 26.5 Monocytes % 7.6 Eosinophils % 8.5 H Basophils % 0.5 Nucleated Red Blood Cells % 0.0 Immature Granulocytes # 0.020 Neutrophils # 3.2 Lymphocytes # 1.5 Monocytes # 0.4 Eosinophils # 0.5 Basophils # 0.0 Nucleated Red Blood Cells # 0.0 Prothrombin Time 11.6 L Prothrombin Time Ratio 0.9 INR International Normalized Ratio 0.84 Sodium Level 141 Potassium Level 4.5 Chloride Level 106 Carbon Dioxide Level 26 Anion Gap 9 Blood Urea Nitrogen 18 Creatinine 0.97 Est Glomerular Filtrat Rate mL/min > 60 Glucose Level 102 Calcium Level 9.2 Subjective 24 Hr Interval Summary Free Text/Dictation No chest pain. Exam/Review of Systems Exam Vitals Vital Signs Date Temp Pulse Resp B/P (MAP) Pulse Ox O2 O2 Flow FiO2 Time Delivery Rate 09/14/18 58 12:13 09/14/18 97.8 22 156/85 96 Room Air 11:45 (108) Intake and Output 09/13/18 09/13/18 09/14/18 1515:00 23:00 07:00 IntakeIntake Total 1150 ml BalanceBalance 1150 ml Exam Exam ENERAL: The patient is awake, alert, oriented, does not appear to in any acute distress. HEENT: Pupils equal, round, react to light. NECK: Supple. No JVD. HEART: Regular rate and rhythm. LUNGS: Clear to auscultation bilaterally. ABDOMEN: Soft, nontender, nondistended, positive normoactive bowel sounds. EXTREMITIES: The patient has right lower extremity in cast now off and left elbow status post surgery. Results Results 24hrs Laboratory Tests Test 09/14/18 05:53 White Blood Count 5.7 # Red Blood Count 4.11 L Hemoglobin 12.4 L Hematocrit 36.4 L Mean Corpuscular Volume 88.6 Mean Corpuscular Hemoglobin 30.2 Mean Corpuscular Hemoglobin Concent 34.1 Red Cell Distribution Width 12.4 Platelet Count 176 Mean Platelet Volume 9.9 Immature Granulocytes % 0.400 Neutrophils % 56.5 Lymphocytes % 26.5 Monocytes % 7.6 Eosinophils % 8.5 H Basophils % 0.5 Nucleated Red Blood Cells % 0.0 Immature Granulocytes # 0.020 Neutrophils # 3.2 Lymphocytes # 1.5 Monocytes # 0.4 Eosinophils # 0.5 Basophils # 0.0 Nucleated Red Blood Cells # 0.0 Prothrombin Time 11.6 L Prothrombin Time Ratio 0.9 INR International Normalized Ratio 0.84 Sodium Level 141 Potassium Level 4.5 Chloride Level 106 Carbon Dioxide Level 26 Anion Gap 9 Blood Urea Nitrogen 18 Creatinine 0.97 Est Glomerular Filtrat Rate mL/min > 60 Glucose Level 102 Calcium Level 9.2 Medications Medication Current Medications IV Flush (NS 3 ml) 3 ml PER PROTOCOL IV ; Start 09/11/18 at 16:00 Ondansetron HCl (Zofran Inj) 4 mg Q6H PRN IV NAUSEA/VOMITING; Start 09/11/18 at 16:00 Acetaminophen (Tylenol Tab) 650 mg Q6H PRN PO .PAIN 1-3 OR TEMP; Start 09/11/18 at 16:00 Acetaminophen/ Hydrocodone Bitart ([place] (5/325)) 1 tab Q6H PRN PO .MOD PAIN 4- 6 Last administered on 09/12/18 05:33; Admin Dose 1 TAB; Start 09/11/18 at 16:00 Docusate Sodium (Colace) 100 mg Q12H PRN PO .CONSTIPATION; Start 09/11/18 at 16:00 Pantoprazole (Protonix Tab) 40 mg DAILY@06 PO Last administered on 09/13/18 05:55; Admin Dose 40 MG; Start 09/12/18 at 06:00 Amlodipine Besylate (Norvasc) 5 mg DAILY PO Last administered on 09/14/18 08:21; Admin Dose 5 MG; Start 09/12/18 at 09:00 Atorvastatin Calcium (Lipitor) 20 mg QHS PO Last administered on 09/13/18 21:27; Admin Dose 20 MG; Start 09/11/18 at 21:00 Lisinopril (Zestril) 20 mg DAILY PO Last administered on 09/14/18 08:21; Admin Dose 20 MG; Start 09/12/18 at 09:00 Metoprolol Succinate (Toprol Xl) 25 mg DAILY PO Last administered on 09/14/18 08:21; Admin Dose 25 MG; Start 09/12/18 at 09:00 Zolpidem Tartrate (Ambien) 5 mg HS PRN PO INSOMNIA Last administered on 09/12/18 01:46; Admin Dose 5 MG; Start 09/12/18 at 01:30 Morphine Sulfate (morphine) 2 mg Q4H PRN IV SEVERE PAIN LEVEL 7-10 Last administered on 09/12/18 15:17; Admin Dose 2 MG; Start 09/12/18 at 06:30 Sodium Chloride 1,000 ml @ 70 mls/hr [id number] IV Last administered on 09/14/18 06:35; Admin Dose 70 MLS/HR; Start 09/12/18 at 11:30 Cephalexin (Keflex) 250 mg Q6 PO Last administered on 09/14/18 12:47; Admin Dose 250 MG; Start 09/12/18 at 18:00 Aspirin (Aspirin) 81 mg DAILY PO Last administered on 09/14/18at 08:23; Admin Dose 81 MG; Start 09/12/18 at 14:00 JENNIFER ALVAREZ MD Sep 14, 2018 15:55
--- NOTE | 2018-09-14 17:07 | CONS ---
Assessment/Plan Assessment/Plan Hospital Course (Demo Recall) IMPRESSION: 1. Chest pain, assess for acute coronary syndrome. Negative troponins greater than 3. No chest pain at this time. lexiscan stress test positive for ischemia 2. Abnormal electrocardiogram with lateral T-wave inversion. 3. History of PTCA and stent placement x3, most recently to 2017. 4. Hypertension. 5. Dyslipidemia. 6. Status post recent fall, traumatic. 7. Postop day #1 status post left elbow surgery. Recc: -Tele -serial ecg's -Continue asa/statin -Contineu norvasc/BB/ACEI -scheduled for [facility] monday at 11:00 am Consultation Date/Type/Reason Admit Date/Time Sep 13, 2018 at 16:49 Initial Consult Date 09/12/18 Type of Consult Cardiology Reason for Consultation chest pain Requesting Provider: JENNIFER ALVAREZ MD Date/Time of Note DATE: 09/14/18 TIME: 17:03 Exam/Review of Systems Vital Signs Vitals Vital Signs Date Temp Pulse Resp B/P (MAP) Pulse Ox O2 O2 Flow FiO2 Time Delivery Rate 09/14/18 64 16:18 09/14/18 96.0 22 125/85 96 Room Air 16:10 (98) Intake and Output 09/13/18 09/13/18 09/14/18 1515:00 23:00 07:00 IntakeIntake Total 1150 ml BalanceBalance 1150 ml Exam Exam Review of Systems: CONSTITUTIONAL: No fevers, chills. PULMONARY: No sob CARDIOVASCULAR: No chest pain/palpitations GASTROINTESTINAL: No nausea/vomiting. GENITOURINARY: No hematuria/dysuria. MUSCULOSKELETAL: No myagias/arthalgias. PSYCHIATRIC: The patient denies depression. NEUROLOGIC: No weakness Constitutional: alert, oriented Head: normocephalic ENMT: mucosa pink and moist Neck: supple, jvd (9 cm water) Respiratory: diminished breath sounds Cardiovascular: regular rate and rhythm Gastrointestinal: soft, non-tender Musculoskeletal: muscle tone (normal) Extremities: edema (none) Neurological: other (No focal deficits) Labs Result Diagram: 09/14/18 0553 09/14/18 0553 Results 24hrs Laboratory Tests Test 09/14/18 05:53 White Blood Count 5.7 # Red Blood Count 4.11 L Hemoglobin 12.4 L Hematocrit 36.4 L Mean Corpuscular Volume 88.6 Mean Corpuscular Hemoglobin 30.2 Mean Corpuscular Hemoglobin Concent 34.1 Red Cell Distribution Width 12.4 Platelet Count 176 Mean Platelet Volume 9.9 Immature Granulocytes % 0.400 Neutrophils % 56.5 Lymphocytes % 26.5 Monocytes % 7.6 Eosinophils % 8.5 H Basophils % 0.5 Nucleated Red Blood Cells % 0.0 Immature Granulocytes # 0.020 Neutrophils # 3.2 Lymphocytes # 1.5 Monocytes # 0.4 Eosinophils # 0.5 Basophils # 0.0 Nucleated Red Blood Cells # 0.0 Prothrombin Time 11.6 L Prothrombin Time Ratio 0.9 INR International Normalized Ratio 0.84 Sodium Level 141 Potassium Level 4.5 Chloride Level 106 Carbon Dioxide Level 26 Anion Gap 9 Blood Urea Nitrogen 18 Creatinine 0.97 Est Glomerular Filtrat Rate mL/min > 60 Glucose Level 102 Calcium Level 9.2 Medications Medications Current Medications IV Flush (NS 3 ml) 3 ml PER PROTOCOL IV ; Start 09/11/18 at 16:00 Ondansetron HCl (Zofran Inj) 4 mg Q6H PRN IV NAUSEA/VOMITING; Start 09/11/18 at 16:00 Acetaminophen (Tylenol Tab) 650 mg Q6H PRN PO .PAIN 1-3 OR TEMP; Start 09/11/18 at 16:00 Acetaminophen/ Hydrocodone Bitart ([place] (5/325)) 1 tab Q6H PRN PO .MOD PAIN 4- 6 Last administered on 09/12/18at 05:33; Admin Dose 1 TAB; Start 09/11/18 at 16:00 Docusate Sodium (Colace) 100 mg Q12H PRN PO .CONSTIPATION; Start 09/11/18 at 16: 00 Pantoprazole (Protonix Tab) 40 mg DAILY@06 PO Last administered on 09/13/18at 05:55; Admin Dose 40 MG; Start 09/12/18 at 06:00 Amlodipine Besylate (Norvasc) 5 mg DAILY PO Last administered on 09/14/18at 08:21; Admin Dose 5 MG; Start 09/12/18 at 09:00 Atorvastatin Calcium (Lipitor) 20 mg QHS PO Last administered on 09/13/18at 21:27; Admin Dose 20 MG; Start 09/11/18 at 21:00 Lisinopril (Zestril) 20 mg DAILY PO Last administered on 09/14/18 08:21; Admin Dose 20 MG; Start 09/12/18 at 09:00 Metoprolol Succinate (Toprol Xl) 25 mg DAILY PO Last administered on 09/14/18 08:21; Admin Dose 25 MG; Start 09/12/18 at 09:00 Zolpidem Tartrate (Ambien) 5 mg HS PRN PO INSOMNIA Last administered on 09/03 01:46; Admin Dose 5 MG; Start 09/12/18 at 01:30 Morphine Sulfate (morphine) 2 mg Q4H PRN IV SEVERE PAIN LEVEL 7-10 Last administered on 09/12/18 15:17; Admin Dose 2 MG; Start 09/12/18 at 06:30 Cephalexin (Keflex) 250 mg Q6 PO Last administered on 09/14/18 12:47; Admin Dose 250 MG; Start 09/12/18 at 18:00 Aspirin (Aspirin) 81 mg DAILY PO Last administered on 09/14/18 08:23; Admin Dose 81 MG; Start 09/12/18 at 14:00 CHAVO ESPARZA Sep 14, 2018 17:07
[2018-09-14] MEDS: ATORVASTATIN 20 MG TAB PO SCH (20:53)
[2018-09-15] VITALS (11 sets, daily range): BP systolic 112–142; BP diastolic 78–99; PULSE 53–67; RESP 18
[2018-09-15] MEDS: CEPHALEXIN 250 MG CAP PO SCH ×4 (00:58→18:33)
[2018-09-15] MEDS: PANTOPRAZOLE (EC) 40 MG TAB PO SCH (06:28)
[2018-09-15] MEDS: LISINOPRIL 20 MG TAB PO SCH (10:10)
[2018-09-15] MEDS: AMLODIPINE 5 MG TAB PO SCH (10:10)
[2018-09-15] MEDS: ASPIRIN 81 MG TAB PO SCH (10:10)
[2018-09-15] MEDS: METOPROLOL (XL) 25 MG TAB PO SCH (10:11)
--- NOTE | 2018-09-15 15:04 | CONS ---
Assessment/Plan Assessment/Plan Assessment/Plan (Daily) 1. Chest pain stress test positive for ischemia 2. Abnormal electrocardiogram with lateral T-wave inversion. 3. History of PTCA and stent placement x3, most recently to 2017. 4. Hypertension. 5. Dyslipidemia. 6. Status post recent fall, traumatic. 7. Postop day #1 status post left elbow surgery. Cardiac cath Monday Continue Lopressor Continue Lisinopril Continue Norvasc Continue Lipitor Consultation Date/Type/Reason Admit Date/Time Sep 13, 2018 at 16:49 Type of Consult Cardiology Date/Time of Note DATE: 09/15/18 TIME: 14:59 Past Medical History Home Meds Reported Medications Metoprolol Succinate* (Toprol XL*) 25 Mg Tab.sr.24h, 25 MG PO DAILY, #30 TAB 09/11/18 Clopidogrel Bisulfate* (Clopidogrel Bisulfate*) 75 Mg Tablet, 75 MG PO DAILY, #30 TAB 09/11/18 Atorvastatin Calcium* (Atorvastatin Calcium*) 20 Mg Tablet, 20 MG PO QHS, #30 TAB 09/11/18 Amlodipine Besylate* (Norvasc*) 5 Mg Tablet, 5 MG PO DAILY, TAB 09/11/18 Aspirin* (Aspirin* Chew) 81 Mg Tab.chew, 81 MG PO DAILY, TAB.CHEW 09/11/18 Lisinopril* (Lisinopril*) 20 Mg Tablet, 20 MG PO DAILY, #30 TAB 09/11/18 Medications Current Medications IV Flush (NS 3 ml) 3 ml PER PROTOCOL IV ; Start 09/11/18 at 16:00 Ondansetron HCl (Zofran Inj) 4 mg Q6H PRN IV NAUSEA/VOMITING; Start 09/11/18 at 16:00 Acetaminophen (Tylenol Tab) 650 mg Q6H PRN PO .PAIN 1-3 OR TEMP; Start 09/11/18 at 16:00 Acetaminophen/ Hydrocodone Bitart ([place] (5/325)) 1 tab Q6H PRN PO .MOD PAIN 4- 6 Last administered on 09/12/18at 05:33; Admin Dose 1 TAB; Start 09/11/18 at 16:00 Docusate Sodium (Colace) 100 mg Q12H PRN PO .CONSTIPATION; Start 09/11/18 at 16:00 Pantoprazole (Protonix Tab) 40 mg DAILY@06 PO Last administered on 09/15/18 06:28; Admin Dose 40 MG; Start 09/12/18 at 06:00 Amlodipine Besylate (Norvasc) 5 mg DAILY PO Last administered on 09/15/18 10:10; Admin Dose 5 MG; Start 09/12/18 at 09:00 Atorvastatin Calcium (Lipitor) 20 mg QHS PO Last administered on 09/14/18 20:53; Admin Dose 20 MG; Start 09/11/18 at 21:00 Lisinopril (Zestril) 20 mg DAILY PO Last administered on 09/15/18 10:10; Admin Dose 20 MG; Start 09/12/18 at 09:00 Metoprolol Succinate (Toprol Xl) 25 mg DAILY PO Last administered on 09/15/18 10:11; Admin Dose 25 MG; Start 09/12/18 at 09:00 Zolpidem Tartrate (Ambien) 5 mg HS PRN PO INSOMNIA Last administered on 09/12/18 01:46; Admin Dose 5 MG; Start 09/12/18 at 01:30 Morphine Sulfate (morphine) 2 mg Q4H PRN IV SEVERE PAIN LEVEL 7-10 Last administered on 09/12/18 15:17; Admin Dose 2 MG; Start 09/12/18 at 06:30 Cephalexin (Keflex) 250 mg Q6 PO Last administered on 09/15/18 12:41; Admin Dose 250 MG; Start 09/12/18 at 18:00 Aspirin (Aspirin) 81 mg DAILY PO Last administered on 09/15/18 10:10; Admin Dose 81 MG; Start 09/12/18 at 14:00 Allergies: Coded Allergies: No Known Allergy (Unverified , 09/11/18) Social History Smoking Status: Former smoker Exam/Review of Systems Vital Signs Vitals Vital Signs Date Temp Pulse Resp B/P (MAP) Pulse Ox O2 O2 Flow FiO2 Time Delivery Rate 09/15/18 55 12:00 09/15/18 98.2 18 140/99 99 11:16 (113) 09/14/18 Room Air 16:10 Intake and Output 09/14/18 09/14/18 09/15/18 1515:00 23:00 07:00 IntakeIntake Total 1200 ml 200 ml 300 ml BalanceBalance 1200 ml 200 ml 300 ml Exam Constitutional: alert Head: normocephalic, atraumatic Neck: supple, non-tender Respiratory: clear to auscultation Cardiovascular: regular rate and rhythm (no m/r/g) Extremities: normal pulses Labs Result Diagram: 09/14/1855209/14/18552 Medications Medications Current Medications IV Flush (NS 3 ml) 3 ml PER PROTOCOL IV ; Start 09/11/18 at 16:00 Ondansetron HCl (Zofran Inj) 4 mg Q6H PRN IV NAUSEA/VOMITING; Start 09/11/18 at 16:00 Acetaminophen (Tylenol Tab) 650 mg Q6H PRN PO .PAIN 1-3 OR TEMP; Start 09/11/18 at 16:00 Acetaminophen/ Hydrocodone Bitart ([place] (5/325)) 1 tab Q6H PRN PO .MOD PAIN 4- 6 Last administered on 09/12/18at 05:33; Admin Dose 1 TAB; Start 09/11/18 at 16:00 Docusate Sodium (Colace) 100 mg Q12H PRN PO .CONSTIPATION; Start 09/11/18 at 16:00 Pantoprazole (Protonix Tab) 40 mg DAILY@06 PO Last administered on 09/15/18at 06:28; Admin Dose 40 MG; Start 09/12/18 at 06:00 Amlodipine Besylate (Norvasc) 5 mg DAILY PO Last administered on 09/15/18at 10:10; Admin Dose 5 MG; Start 09/12/18 at 09:00 Atorvastatin Calcium (Lipitor) 20 mg QHS PO Last administered on 09/14/18at 20:53; Admin Dose 20 MG; Start 09/11/18 at 21:00 Lisinopril (Zestril) 20 mg DAILY PO Last administered on 09/15/18 10:10; Admin Dose 20 MG; Start 09/12/18 at 09:00 Metoprolol Succinate (Toprol Xl) 25 mg DAILY PO Last administered on 09/15/18 10:11; Admin Dose 25 MG; Start 09/12/18 at 09:00 Zolpidem Tartrate (Ambien) 5 mg HS PRN PO INSOMNIA Last administered on 09/12/18at 01:46; Admin Dose 5 MG; Start 09/12/18 at 01:30 Morphine Sulfate (morphine) 2 mg Q4H PRN IV SEVERE PAIN LEVEL 7-10 Last administered on 09/12/18at 15:17; Admin Dose 2 MG; Start 09/12/18 at 06:30 Cephalexin (Keflex) 250 mg Q6 PO Last administered on 09/15/18at 12:41; Admin Dose 250 MG; Start 09/12/18 at 18:00 Aspirin (Aspirin) 81 mg DAILY PO Last administered on 09/15/18at 10:10; Admin Dose 81 MG; Start 09/12/18 at 14:00 MAURO RENEE M.D. Sep 15, 2018 15:04
--- NOTE | 2018-09-15 18:02 | PN ---
Date/Time of Note Date/Time of Note DATE: 09/15/18 TIME: 18:00 Assessment/Plan VTE Prophylaxis Risk score (from Ns)>0 risk: 6 SCD applied (from Ns): No SCD contraindicated: low risk/ambulating Pharmacological prophylaxis: NA/contraindicated Pharm contraindication: low risk/ambulating Lines/Catheters IV Catheter Type (from Nrs): Peripheral IV Assessment/Plan Hospital Course 1. Right-sided chest pain, status post left elbow surgery on 09/11/18 The patient has received general anesthesia. D-dimer is elevated. CT ANGIO neg for PE . The patient also has history of coronary artery disease. Need to rule out if patient had underlying ACS. Trop neg so far 2. Mild leukocytosis. 3. Right ankle injury status post fall 4. Left elbow surgery.fall 5. Hypertension. 6. Hyperlipidemia. 7 Mild rhabdomyolysis. 8. Obesity Assessment/Plan - Stress test +reversible ischemia? artifact - angiogram will likely be on Monday - pain control - cw ASA/statin/MTP - cw amlodipine/lisinopril - GI prophylaxis Protonix -DVT prophylaxis walking. Result Diagram: 09/14/18 0553 09/14/18 0553 Subjective 24 Hr Interval Summary Musculoskeletal: bone/joint pain (left arm) Exam/Review of Systems Exam Vitals Vital Signs Date Temp Pulse Resp B/P (MAP) Pulse Ox O2 O2 Flow FiO2 Time Delivery Rate 09/15/18 64 16:00 09/15/18 98.6 18 142/85 98 15:47 (104) 09/14/18 Room Air 16:10 Intake and Output 09/14/18 09/14/18 09/15/18 1515:00 23:00 07:00 IntakeIntake Total 1200 ml 200 ml 300 ml BalanceBalance 1200 ml 200 ml 300 ml Constitutional: alert, oriented Neck: supple Cardiovascular: regular rate and rhythm Gastrointestinal: soft Musculoskeletal: range of motion (decreased left arm, long splint) Medications Medication Current Medications IV Flush (NS 3 ml) 3 ml PER PROTOCOL IV ; Start 09/11/18 at 16:00 Ondansetron HCl (Zofran Inj) 4 mg Q6H PRN IV NAUSEA/VOMITING; Start 09/11/18 at 16:00 Acetaminophen (Tylenol Tab) 650 mg Q6H PRN PO .PAIN 1-3 OR TEMP; Start 09/11/18 at 16:00 Acetaminophen/ Hydrocodone Bitart ([place] (5/325)) 1 tab Q6H PRN PO .MOD PAIN 4- 6 Last administered on 09/12/18 05:33; Admin Dose 1 TAB; Start 09/11/18 at 16:00 Docusate Sodium (Colace) 100 mg Q12H PRN PO .CONSTIPATION; Start 09/11/18 at 16:00 Pantoprazole (Protonix Tab) 40 mg DAILY@06 PO Last administered on 09/15/18 06:28; Admin Dose 40 MG; Start 09/12/18 at 06:00 Amlodipine Besylate (Norvasc) 5 mg DAILY PO Last administered on 09/15/18 10:10; Admin Dose 5 MG; Start 09/12/18 at 09:00 Atorvastatin Calcium (Lipitor) 20 mg QHS PO Last administered on 09/14/18 20:53; Admin Dose 20 MG; Start 09/11/18 at 21:00 Lisinopril (Zestril) 20 mg DAILY PO Last administered on 09/15/18 10:10; Admin Dose 20 MG; Start 09/12/18 at 09:00 Metoprolol Succinate (Toprol Xl) 25 mg DAILY PO Last administered on 09/15/18 10:11; Admin Dose 25 MG; Start 09/12/18 at 09:00 Zolpidem Tartrate (Ambien) 5 mg HS PRN PO INSOMNIA Last administered on 09/12/18 01:46; Admin Dose 5 MG; Start 09/12/18 at 01:30 Morphine Sulfate (morphine) 2 mg Q4H PRN IV SEVERE PAIN LEVEL 7-10 Last administered on 09/12/18 15:17; Admin Dose 2 MG; Start 09/12/18 at 06:30 Cephalexin (Keflex) 250 mg Q6 PO Last administered on 09/15/18 12:41; Admin Dose 250 MG; Start 09/12/18 at 18:00 Aspirin (Aspirin) 81 mg DAILY PO Last administered on 09/15/18 10:10; Admin Do se 81 MG; Start 09/12/18 at 14:00 DAVID BRONSON Sep 15, 2018 18:01
[2018-09-15] MEDS: ATORVASTATIN 20 MG TAB PO SCH (20:20)
[2018-09-15] MEDS ORDERED: BISACODYL 10 MG SUPP PR PRN (21:30)
[2018-09-16] VITALS (12 sets, daily range): BP systolic 109–129; BP diastolic 71–86; PULSE 59–73; RESP 18–20
[2018-09-16] MEDS: CEPHALEXIN 250 MG CAP PO SCH ×5 (00:48→22:02)
[2018-09-16] MEDS: PANTOPRAZOLE (EC) 40 MG TAB PO SCH (06:58)
[2018-09-16] MEDS: METOPROLOL (XL) 25 MG TAB PO SCH (10:13)
[2018-09-16] MEDS: ASPIRIN 81 MG TAB PO SCH (10:13)
[2018-09-16] MEDS: LISINOPRIL 20 MG TAB PO SCH (10:13)
[2018-09-16] MEDS: AMLODIPINE 10 MG TAB PO SCH (10:14)
--- NOTE | 2018-09-16 13:03 | PN ---
Date/Time of Note Date/Time of Note DATE: 09/16/18 TIME: 13:02 Assessment/Plan VTE Prophylaxis Risk score (from Ns)>0 risk: 7 SCD applied (from [facility] [place]): No SCD contraindicated: low risk/ambulating Pharmacological prophylaxis: NA/contraindicated Pharm contraindication: surgical contra Lines/Catheters IV C[facility]ter Type (from [facility]): Peripheral IV Urinary Cath still in place: No Assessment/Plan Hospital Course 1. Right-sided chest pain, status post left elbow surgery on 09/11/18 The patient has received general anesthesia. D-dimer is elevated. CT ANGIO neg for PE . The patient also has history of coronary artery disease. Need to rule o ut if patient had underlying ACS. Trop neg so far 2. Mild leukocytosis, resolved. 3. Right ankle injury status post fall 4. Left elbow surgery after fall 5. Hypertension, controlled. 6. Hyperlipidemia. 7 Mild rhabdomyolysis. 8. Obesity Assessment/Plan - Stress test +reversible ischemia? artifact - angiogram will be on Monday - pain control -long sleeve left arm intact - cw ASA/statin/MTP - cw amlodipine/lisinopril - GI prophylaxis Protonix -DVT prophylaxis walking. Result Diagram: 09/16/18 0532 09/16/18 0532 Results 24hrs Laboratory Tests Test 09/16/18 05:32 White Blood Count 5.0 Red Blood Count 3.96 L Hemoglobin 12.0 L Hematocrit 35.2 L Mean Corpuscular Volume 88.9 Mean Corpuscular Hemoglobin 30.3 Mean Corpuscular Hemoglobin Concent 34.1 Red Cell Distribution Width 12.0 Platelet Count 195 Mean Platelet Volume 10.2 Immature Granulocytes % 0.400 Neutrophils % 54.2 Lymphocytes % 29.6 Monocytes % 7.3 Eosinophils % 8.1 H Basophils % 0.4 Nucleated Red Blood Cells % 0.0 Immature Granulocytes # 0.020 Neutrophils # 2.7 Lymphocytes # 1.5 Monocytes # 0.4 Eosinophils # 0.4 Basophils # 0.0 Nucleated Red Blood Cells # 0.0 Sodium Level 141 Potassium Level 3.9 Chloride Level 107 Carbon Dioxide Level 26 Anion Gap 8 Blood Urea Nitrogen 22 H Creatinine 1.18 Est Glomerular Filtrat Rate mL/min > 60 Glucose Level 109 Calcium Level 9.3 Subjective 24 Hr Interval Summary Cardiovascular: chest pain; No no complaints, No edema, No lightheadedness, No orthopenea, No palpitations, No paroxysmal nocturnal dyspnea, No other Musculoskeletal: restricted range of motion (left arm) Exam/Review of Systems Exam Vitals Vital Signs Date Temp Pulse Resp B/P (MAP) Pulse Ox O2 O2 Flow FiO2 Time Delivery Rate 09/16/18 70 12:00 09/16/18 97.8 19 118/80 96 11:25 (93) 09/14/18 Room Air 16:10 Intake and Output 09/15/18 09/15/18 09/16/18 1515:00 23:00 07:00 IntakeIntake Total 450 ml BalanceBalance 450 ml Constitutional: alert, oriented Respiratory: clear to auscultation Cardiovascular: regular rate and rhythm Gastrointestinal: soft Musculoskeletal: muscle weakness (foot) Results Results 24hrs Laboratory Tests Test 09/16/18 05:32 White Blood Count 5.0 Red Blood Count 3.96 L Hemoglobin 12.0 L Hematocrit 35.2 L Mean Corpuscular Volume 88.9 Mean Corpuscular Hemoglobin 30.3 Mean Corpuscular Hemoglobin Concent 34.1 Red Cell Distribution Width 12.0 Platelet Count 195 Mean Platelet Volume 10.2 Immature Granulocytes % 0.400 Neutrophils % 54.2 Lymphocytes % 29.6 Monocytes % 7.3 Eosinophils % 8.1 H Basophils % 0.4 Nucleated Red Blood Cells % 0.0 Immature Granulocytes # 0.020 Neutrophils # 2.7 Lymphocytes # 1.5 Monocytes # 0.4 Eosinophils # 0.4 Basophils # 0.0 Nucleated Red Blood Cells # 0.0 Sodium Level 141 Potassium Level 3.9 Chloride Level 107 Carbon Dioxide Level 26 Anion Gap 8 Blood Urea Nitrogen 22 H Creatinine 1.18 Est Glomerular Filtrat Rate mL/min > 60 Glucose Level 109 Calcium Level 9.3 Medications Medication Current Medications IV Flush (NS 3 ml) 3 ml PER PROTOCOL IV ; Start 09/11/18 at 16:00 Ondansetron HCl (Zofran Inj) 4 mg Q6H PRN IV NAUSEA/VOMITING; Start 09/11/18 at 16:00 Acetaminophen (Tylenol Tab) 650 mg Q6H PRN PO .PAIN 1-3 OR TEMP; Start 09/11/18 at 16:00 Acetaminophen/ Hydrocodone Bitart ([place] (5/325)) 1 tab Q6H PRN PO .MOD PAIN 4- 6 Last administered on 4/10/19at 05:33; Admin Dose 1 TAB; Start 09/11/18 at 16:00 Docusate Sodium (Colace) 100 mg Q12H PRN PO .CONSTIPATION; Start 09/11/18 at 16:00 Pantoprazole (Protonix Tab) 40 mg DAILY@06 PO Last administered on 09/16/18 06:58; Admin Dose 40 MG; Start 09/12/18 at 06:00 Atorvastatin Calcium (Lipitor) 20 mg QHS PO Last administered on 09/15/18 20:20; Admin Dose 20 MG; Start 09/11/18 at 21:00 Lisinopril (Zestril) 20 mg DAILY PO Last administered on 09/16/18 10:13; Admin Dose 20 MG; Start 09/12/18 at 09:00 Metoprolol Succinate (Toprol Xl) 25 mg DAILY PO Last administered on 09/16/18 10:13; Admin Dose 25 MG; Start 09/12/18 at 09:00 Zolpidem Tartrate (Ambien) 5 mg HS PRN PO INSOMNIA Last administered on 09/12/18 01:46; Admin Dose 5 MG; Start 09/12/18 at 01:30 Morphine Sulfate (morphine) 2 mg Q4H PRN IV SEVERE PAIN LEVEL 7-10 Last administered on 09/12/18 15:17; Admin Dose 2 MG; Start 09/12/18 at 06:30 Cephalexin (Keflex) 250 mg Q6 PO Last administered on 09/16/18 06:58; Admin Dose 250 MG; Start 09/12/18 at 18:00 Aspirin (Aspirin) 81 mg DAILY PO Last administered on 09/16/18 10:13; Admin Dose 81 MG; Start 09/12/18 at 14:00 Amlodipine Besylate (Norvasc) 10 mg DAILY PO Last administered on 09/16/18 10:14; Admin Dose 10 MG; Start 09/16/18 at 09:00 Bisacodyl (Dulcolax Supp) 10 mg DAILY PRN [place] CONSTIPATION; Start 09/15/18 at 21:30 DAVID BRONSON Sep 16, 2018 13:03
--- NOTE | 2018-09-16 14:05 | CONS ---
Assessment/Plan Assessment/Plan Assessment/Plan (Daily) Chest pain stress test positive for ischemia Abnormal electrocardiogram with lateral T-wave inversion. S/P PTCA and stent placement x3, most recently to 2017. Hypertension. Dyslipidemia. Status post recent fall, traumatic. status post left elbow surgery. Cardiac cath Monday Continue Lopressor Continue Lisinopril Continue Norvasc Continue Lipitor Consultation Date/Type/Reason Admit Date/Time Sep 13, 2018 at 16:49 Initial Consult Date Type of Consult Cardiology Requesting Provider: JENNIFER ALVAREZ MD Date/Time of Note DATE: 09/16/18 TIME: 14:04 Exam/Review of Systems Vital Signs Vitals Vital Signs Date Temp Pulse Resp B/P (MAP) Pulse Ox O2 O2 Flow FiO2 Time Delivery Rate 09/16/18 70 12:00 09/16/18 97.8 19 118/80 96 11:25 (93) 09/14/18 Room Air 16:10 Exam Constitutional: alert, oriented Neck: supple, non-tender Respiratory: clear to auscultation Cardiovascular: regular rate and rhythm (no m/r/g) Extremities: normal pulses Labs Result Diagram: 09/16/18 0532 09/16/18 0532 Results 24hrs Laboratory Tests Test 09/16/18 05:32 White Blood Count 5.0 Red Blood Count 3.96 L Hemoglobin 12.0 L Hematocrit 35.2 L Mean Corpuscular Volume 88.9 Mean Corpuscular Hemoglobin 30.3 Mean Corpuscular Hemoglobin Concent 34.1 Red Cell Distribution Width 12.0 Platelet Count 195 Mean Platelet Volume 10.2 Immature Granulocytes % 0.400 Neutrophils % 54.2 Lymphocytes % 29.6 Monocytes % 7.3 Eosinophils % 8.1 H Basophils % 0.4 Nucleated Red Blood Cells % 0.0 Immature Granulocytes # 0.020 Neutrophils # 2.7 Lymphocytes # 1.5 Monocytes # 0.4 Eosinophils # 0.4 Basophils # 0.0 Nucleated Red Blood Cells # 0.0 Sodium Level 141 Potassium Level 3.9 Chloride Level 107 Carbon Dioxide Level 26 Anion Gap 8 Blood Urea Nitrogen 22 H Creatinine 1.18 Est Glomerular Filtrat Rate mL/min > 60 Glucose Level 109 Calcium Level 9.3 Medications Medications Current Medications IV Flush (NS 3 ml) 3 ml PER PROTOCOL IV ; Start 09/11/18 at 16:00 Ondansetron HCl (Zofran Inj) 4 mg Q6H PRN IV NAUSEA/VOMITING; Start 09/11/18 at 16:00 Acetaminophen (Tylenol Tab) 650 mg Q6H PRN PO .PAIN 1-3 OR TEMP; Start 09/11/18 at 16:00 Acetaminophen/ Hydrocodone Bitart ([place] (5/325)) 1 tab Q6H PRN PO .MOD PAIN 4- 6 Last administered on 09/12/18 05:33; Admin Dose 1 TAB; Start 09/11/18 at 16:00 Docusate Sodium (Colace) 100 mg Q12H PRN PO .CONSTIPATION; Start 09/11/18 at 16:00 Pantoprazole (Protonix Tab) 40 mg DAILY@06 PO Last administered on 09/16/18 06:58; Admin Dose 40 MG; Start 09/12/18 at 06:00 Atorvastatin Calcium (Lipitor) 20 mg QHS PO Last administered on 09/15/18 20:20; Admin Dose 20 MG; Start 09/11/18 at 21:00 Lisinopril (Zestril) 20 mg DAILY PO Last administered on 09/16/18 10:13; Admin Dose 20 MG; Start 09/12/18 at 09:00 Metoprolol Succinate (Toprol Xl) 25 mg DAILY PO Last administered on 09/16/18 10:13; Admin Dose 25 MG; Start 09/12/18 at 09:00 Zolpidem Tartrate (Ambien) 5 mg HS PRN PO INSOMNIA Last administered on 09/12/18 01:46; Admin Dose 5 MG; Start 09/12/18 at 01:30 Morphine Sulfate (morphine) 2 mg Q4H PRN IV SEVERE PAIN LEVEL 7-10 Last administered on 09/12/18 15:17; Admin Dose 2 MG; Start 09/12/18 at 06:30 Cephalexin (Keflex) 250 mg Q6 PO Last administered on 09/16/18 13:02; Admin Dose 250 MG; Start 09/12/18 at 18:00 Aspirin (Aspirin) 81 mg DAILY PO Last administered on 09/16/18 10:13; Admin Dose 81 MG; Start 09/12/18 at 14:00 Amlodipine Besylate (Norvasc) 10 mg DAILY PO Last administered on 4/14/19at 10:14; Admin Dose 10 MG; Start 09/16/18 at 09:00 Bisacodyl (Dulcolax Supp) 10 mg DAILY PRN [place] CONSTIPATION; Start 09/15/18 at 21:30 MAURO RENEE M.D. Sep 16, 2018 14:05
[2018-09-16] MEDS: ATORVASTATIN 20 MG TAB PO SCH (22:02)
[2018-09-17] VITALS (22 sets, daily range): BP systolic 120–174; BP diastolic 72–93; PULSE 53–93; RESP 18–22
[2018-09-17] MEDS: PANTOPRAZOLE (EC) 40 MG TAB PO SCH (06:42)
[2018-09-17] MEDS: CEPHALEXIN 250 MG CAP PO SCH ×3 (06:42→18:22)
[2018-09-17] MEDS: ASPIRIN 81 MG TAB PO SCH (09:00)
[2018-09-17] MEDS: LISINOPRIL 20 MG TAB PO SCH (09:13)
[2018-09-17] MEDS: METOPROLOL (XL) 25 MG TAB PO SCH (09:13)
[2018-09-17] MEDS: AMLODIPINE 10 MG TAB PO SCH (09:13)
[2018-09-17] MEDS ORDERED: FENTAnyl 50 MCG/ML VIAL ONE (09:47)
[2018-09-17] MEDS ORDERED: IODIXANOL LOCM 100 ML BTL ONE ×2 (09:47→11:04)
[2018-09-17] MEDS ORDERED: LIDOCAINE 1% (MDV) 20 ML INJ ONE (09:47)
[2018-09-17] MEDS ORDERED: MIDAZOLAM 1 MG/ML 2 ML INJ ONE (09:47)
[2018-09-17] MEDS ORDERED: HEPARIN 1000 UNITS/ML 10 ML INJ ONE (09:47)
[2018-09-17] MEDS ORDERED: VERAPAMIL 5 MG INJ ONE (09:47)
[2018-09-17] MEDS ORDERED: NITROGLYCERIN (IC) 100 MCG/ML INJ ONE (09:48)
[2018-09-17] MEDS ORDERED: BIVALIRUDIN 250MG /NS 50 ML 50 ML IVPB ONE (10:16)
[2018-09-17] MEDS ORDERED: TICAGRELOR 90 MG TABLET ONE (11:04)
[2018-09-17] MEDS ORDERED: ASPIRIN 325 MG TAB ONE (11:04)
[2018-09-17] MEDS ORDERED: SOD CHLORIDE 0.9% 1,000 ML IV SCH (11:13)
--- NOTE | 2018-09-17 11:13 | CONS ---
Assessment/Plan Assessment/Plan Hospital Course (Demo Recall) IMPRESSION: 1. Chest pain, assess for acute coronary syndrome. Negative troponins greater than 3. No chest pain at this time. lexiscan stress test positive for ischemia. Now POD#1 s/p stent x 1 to PLB/RCA and PTCA to instent RCA stenosis 2. Abnormal electrocardiogram with lateral T-wave inversion. 3. History of PTCA and stent placement x3, most recently to 2017. 4. Hypertension. 5. Dyslipidemia. 6. Status post recent fall, traumatic. 7. Postop status post left elbow surgery. 8. Recc: -Tele -serial ecg's -Continue statin -Contineu norvasc/BB/ACEI -Now will be ion brilinta and asa for stent patency s/p load today -Copntinue keflex Consultation Date/Type/Reason Admit Date/Time Sep 13, 2018 at 16:49 Initial Consult Date 09/12/18 Type of Consult Cardiology Reason for Consultation Chest pain Requesting Provider: JENNIFER ALVAREZ MD Date/Time of Note DATE: 09/17/18 TIME: 11:10 Exam/Review of Systems Vital Signs Vitals Vital Signs Date Temp Pulse Resp B/P (MAP) Pulse Ox O2 O2 Flow FiO2 Time Delivery Rate 09/17/18 97.6 59 22 129/84 Room Air 08:03 (99) 09/17/18 97 04:00 Intake and Output 09/16/18 09/16/18 09/17/18 1515:00 23:00 07:00 IntakeIntake Total 600 ml 300 ml BalanceBalance 600 ml 300 ml Exam Exam Review of Systems: CONSTITUTIONAL: No fevers, chills. PULMONARY: No sob CARDIOVASCULAR:intermittent chest pain GASTROINTESTINAL: No nausea/vomiting. GENITOURINARY: No hematuria/dysuria. MUSCULOSKELETAL: No myagias/arthalgias. PSYCHIATRIC: The patient denies depression. NEUROLOGIC: No weakness Constitutional: alert Psych: no complaints Head: normocephalic ENMT: mucosa pink and moist Neck: supple, jvd (9 cm water) Respiratory: diminished breath sounds Cardiovascular: regular rate and rhythm Gastrointestinal: soft, non-tender Musculoskeletal: muscle tone (normal) Extremities: edema (none) Neurological: other (No focal deficits) Labs Result Diagram: 09/17/18 0506 09/17/18 0529 Results 24hrs Laboratory Tests Test 09/17/18 05:06 09/17/18 05:29 White Blood Count 5.2 Red Blood Count 3.97 L Hemoglobin 12.0 L Hematocrit 35.5 L Mean Corpuscular Volume 89.4 Mean Corpuscular Hemoglobin 30.2 Mean Corpuscular Hemoglobin Concent 33.8 Red Cell Distribution Width 12.0 Platelet Count 200 Mean Platelet Volume 10.0 Immature Granulocytes % 0.400 Neutrophils % 49.4 Lymphocytes % 31.9 Monocytes % 7.9 Eosinophils % 10.0 H Basophils % 0.4 Nucleated Red Blood Cells % 0.0 Immature Granulocytes # 0.020 Neutrophils # 2.6 Lymphocytes # 1.7 Monocytes # 0.4 Eosinophils # 0.5 Basophils # 0.0 Nucleated Red Blood Cells # 0.0 Sodium Level 142 Potassium Level 4.5 Chloride Level 106 Carbon Dioxide Level 28 Anion Gap 8 Blood Urea Nitrogen 20 Creatinine 1.23 Est Glomerular Filtrat Rate mL/min > 60 Glucose Level 98 Calcium Level 9.3 Medications Medications Current Medications IV Flush (NS 3 ml) 3 ml PER PROTOCOL IV ; Start 09/11/18 at 16:00 Ondansetron HCl (Zofran Inj) 4 mg Q6H PRN IV NAUSEA/VOMITING; Start 09/11/18 at 16:00 Acetaminophen (Tylenol Tab) 650 mg Q6H PRN PO .PAIN 1-3 OR TEMP; Start 09/11/18 at 16:00 Acetaminophen/ Hydrocodone Bitart ([place] (5/325)) 1 tab Q6H PRN PO .MOD PAIN 4- 6 Last administered on 09/12/18at 05:33; Admin Dose 1 TAB; Start 09/11/18 at 16:00 Docusate Sodium (Colace) 100 mg Q12H PRN PO .CONSTIPATION; Start 09/11/18 at 16:00 Pantoprazole (Protonix Tab) 40 mg DAILY@06 PO Last administered on 09/17/18at 06:42; Admin Dose 40 MG; Start 09/12/18 at 06:00 Atorvastatin Calcium (Lipitor) 20 mg QHS PO Last administered on 09/16/18at 22:02; Admin Dose 20 MG; Start 09/11/18 at 21:00 Lisinopril (Zestril) 20 mg DAILY PO Last administered on 09/17/18at 09:13; Admin Dose 20 MG; Start 09/12/18 at 09:00 Metoprolol Succinate (Toprol Xl) 25 mg DAILY PO Last administered on 09/17/18 09:13; Admin Dose 25 MG; Start 09/12/18 at 09:00 Zolpidem Tartrate (Ambien) 5 mg HS PRN PO INSOMNIA Last administered on 09/12/18 01:46; Admin Dose 5 MG; Start 09/12/18 at 01:30 Morphine Sulfate (morphine) 2 mg Q4H PRN IV SEVERE PAIN LEVEL 7-10 Last a dministered on 09/12/18 15:17; Admin Dose 2 MG; Start 09/12/18 at 06:30 Cephalexin (Keflex) 250 mg Q6 PO Last administered on 09/17/18 06:42; Admin Dose 250 MG; Start 09/12/18 at 18:00 Aspirin (Aspirin) 81 mg DAILY PO Last administered on 09/16/18 10:13; Admin Dose 81 MG; Start 09/12/18 at 14:00 Amlodipine Besylate (Norvasc) 10 mg DAILY PO Last administered on 09/17/18 09:13; Admin Dose 10 MG; Start 09/16/18 at 09:00 Bisacodyl (Dulcolax Supp) 10 mg DAILY PRN [place] CONSTIPATION; Start 09/15/18 at 21:30 CHAVO ESPARZA Sep 17, 2018 11:13
[2018-09-17] MEDS ORDERED: ONDANSETRON 4 MG INJ IV PRN (11:30)
[2018-09-17] MEDS ORDERED: morphine 2 MG INJ IV PRN (11:30)
[2018-09-17] MEDS ORDERED: AL HYDROX/MG HYDROX/SIMETH 30 ML CUP PO PRN (11:30)
[2018-09-17] MEDS ORDERED: ZOLPIDEM 5 MG TAB PO PRN (11:30)
[2018-09-17] MEDS ORDERED: ACETAMINOPHEN 325 MG TAB PO PRN (11:30)
[2018-09-17] MEDS ORDERED: OXYCODONE/ACETAMINOPHEN (5/325) TAB PO PRN (11:30)
--- NOTE | 2018-09-17 13:03 | PN ---
Date/Time of Note Date/Time of Note DATE: 09/17/18 TIME: 13:00 Assessment/Plan VTE Prophylaxis Risk score (from Ns)>0 risk: 2 [place] [facility] [place]CD contraindicated: low risk/ambulating Pharmacological prophylaxis: NA/contraindicated Pharm contraindication: low risk/ambulating Lines/Catheters IV [facility] [place] [facility] Urinary Cath still in place: No Assessment/Plan Hospital Course 58-year-old male who presented with: 1. Right-sided chest pain, status post left elbow surgery on 09/11/18 The patient has received general anesthesia. D-dimer is elevated. CT ANGIO neg for PE . The patient also has history of coronary artery disease. Coronary artery disease status post PCI of RCA and PTCA on 0 415 2. Mild leukocytosis. 3. Right ankle injury status post fall 4. Left elbow surgery.fall 5. Hypertension. 6. Hyperlipidemia. 7 Mild Rhabdo Plan -sp post PCI of RCA today -Patient was switched from Plavix to Brilinta today - pain control - cw ASA/statin/MTP - cw amlodipine/lisnopril - GI/DVT prophlyaxsis Continue to monitor likely DC tomorrow Result Diagram: 09/17/18 0506 09/17/18 0529 Results 24hrs Laboratory Tests Test 09/17/18 05:06 09/17/18 05:29 White Blood Count 5.2 Red Blood Count 3.97 L Hemoglobin 12.0 L Hematocrit 35.5 L Mean Corpuscular Volume 89.4 Mean Corpuscular Hemoglobin 30.2 Mean Corpuscular Hemoglobin Concent 33.8 Red Cell Distribution Width 12.0 Platelet Count 200 Mean Platelet Volume 10.0 Immature Granulocytes % 0.400 Neutrophils % 49.4 Lymphocytes % 31.9 Monocytes % 7.9 Eosinophils % 10.0 H Basophils % 0.4 Nucleated Red Blood Cells % 0.0 Immature Granulocytes # 0.020 Neutrophils # 2.6 Lymphocytes # 1.7 Monocytes # 0.4 Eosinophils # 0.5 Basophils # 0.0 Nucleated Red Blood Cells # 0.0 Sodium Level 142 Potassium Level 4.5 Chloride Level 106 Carbon Dioxide Level 28 Anion Gap 8 Blood Urea Nitrogen 20 Creatinine 1.23 Est Glomerular Filtrat Rate mL/min > 60 Glucose Level 98 Calcium Level 9.3 Subjective 24 Hr Interval Summary Free Text/Dictation sp post PCI of RCA. And PTCA Patient was started on Brilinta. Exam/Review of Systems Exam Vitals Vital Signs Date Temp Pulse Resp B/P (MAP) Pulse Ox O2 O2 Flow FiO2 Time Delivery Rate 09/17/18 150/83 Room Air 12:45 (105) 09/17/18 63 12:00 09/17/18 97.6 22 08:03 09/17/18 97 04:00 Intake and Output 09/16/18 09/16/18 09/17/18 1515:00 23:00 07:00 IntakeIntake Total 600 ml 300 ml BalanceBalance 600 ml 300 ml Exam constitutional: alert, oriented Respiratory: clear to auscultation Cardiovascular: regular rate and rhythm Gastrointestinal: soft Musculoskeletal: Elbow in a cast Right elbow status post angiogram Results Results 24hrs Laboratory Tests Test 09/17/18 05:06 09/17/18 05:29 White Blood Count 5.2 Red Blood Count 3.97 L Hemoglobin 12.0 L Hematocrit 35.5 L Mean Corpuscular Volume 89.4 Mean Corpuscular Hemoglobin 30.2 Mean Corpuscular Hemoglobin Concent 33.8 Red Cell Distribution Width 12.0 Platelet Count 200 Mean Platelet Volume 10.0 Immature Granulocytes % 0.400 Neutrophils % 49.4 Lymphocytes % 31.9 Monocytes % 7.9 Eosinophils % 10.0 H Basophils % 0.4 Nucleated Red Blood Cells % 0.0 Immature Granulocytes # 0.020 Neutrophils # 2.6 Lymphocytes # 1.7 Monocytes # 0.4 Eosinophils # 0.5 Basophils # 0.0 Nucleated Red Blood Cells # 0.0 Sodium Level 142 Potassium Level 4.5 Chloride Level 106 Carbon Dioxide Level 28 Anion Gap 8 Blood Urea Nitrogen 20 Creatinine 1.23 Est Glomerular Filtrat Rate mL/min > 60 Glucose Level 98 Calcium Level 9.3 Medications Medication Current Medications IV Flush (NS 3 ml) 3 ml PER PROTOCOL IV ; Start 09/11/18 at 16:00 Acetaminophen (Tylenol Tab) 650 mg Q6H PRN PO .PAIN 1-3 OR TEMP; Start 09/11/18 at 16:00 Acetaminophen/ Hydrocodone Bitart ([place] (5/325)) 1 tab Q6H PRN PO .MOD PAIN 4- 6 Last administered on 09/12/18at 05:33; Admin Dose 1 TAB; Start 09/11/18 at 16:00 Docusate Sodium (Colace) 100 mg Q12H PRN PO .CONSTIPATION; Start 09/11/18 at 16:00 Pantoprazole (Protonix Tab) 40 mg DAILY@06 PO Last administered on 09/17/18at 06:42; Admin Dose 40 MG; Start 09/12/18 at 06:00 Atorvastatin Calcium (Lipitor) 20 mg QHS PO Last administered on 09/16/18at 22:02; Admin Dose 20 MG; Start 09/11/18 at 21:00 Lisinopril (Zestril) 20 mg DAILY PO Last administered on 09/17/18 09:13; Admin Dose 20 MG; Start 09/12/18 at 09:00 Metoprolol Succinate (Toprol Xl) 25 mg DAILY PO Last administered on 09/17/18 09:13; Admin Dose 25 MG; Start 09/12/18 at 09:00 Morphine Sulfate (morphine) 2 mg Q4H PRN IV SEVERE PAIN LEVEL 7-10 Last administered on 09/12/18at 15:17; Admin Dose 2 MG; Start 09/12/18 at 06:30 Cephalexin (Keflex) 250 mg Q6 PO Last administered on 09/17/18 06:42; Admin Dose 250 MG; Start 09/12/18 at 18:00 Aspirin (Aspirin) 81 mg DAILY PO Last administered on 09/16/18at 10:13; Admin Dose 81 MG; Start 09/12/18 at 14:00 Amlodipine Besylate (Norvasc) 10 mg DAILY PO Last administered on 09/17/18at 0 9:13; Admin Dose 10 MG; Start 09/16/18 at 09:00 Bisacodyl (Dulcolax Supp) 10 mg DAILY PRN [place] CONSTIPATION; Start 09/15/18 at 21:30 Miscellaneous Information (* Miscellaneous Pharmacy Order) Hold all Metformin ... ONCE XX ; Start 09/17/18 at 11:30; Stop 09/19/18 at 11:29 Ticagrelor (Brilinta) 90 mg BID PO ; Start 09/17/18 at 21:00 Acetaminophen (Tylenol Tab) 650 mg Q4H PRN PO PAIN; Start 09/17/18 at 11:30 Oxycodone/ Acetaminophen (Percocet (5/ 325)) 1 tab Q4H PRN PO PAIN; Start 09/17/18 at 11:30 Morphine Sulfate (morphine) 1 mg Q1H PRN IV PAIN; Start 09/17/18 at 11:30 Zolpidem Tartrate (Ambien) 5 mg HS MAY REPEAT X 1 PRN PO INSOMNIA; Start 09/17/18 at 11:30 Al Hydrox/Mg Hydrox/Simethicone (Mag-Al Plus) 30 ml Q4H PRN PO GASTROINTESTINAL UPSET; Start 09/17/18 at 11:30 Ondansetron HCl (Zofran Inj) 4 mg Q4H PRN IV NAUSEA AND/OR VOMITING; Start 09/17/18 at 11:30 Sodium Chloride 1,000 ml @ 75 mls/hr [id number] IV Last administered on 09/17/18at 12:10; Admin Dose 75 MLS/HR; Start 09/17/18 at 11:13; Stop 09/18/18 at 00:32 JENNIFER ALVAREZ MD Sep 17, 2018 13:03
[2018-09-17] MEDS: ATORVASTATIN 20 MG TAB PO SCH (20:38)
[2018-09-17] MEDS: TICAGRELOR 90 MG TABLET PO SCH (20:40)
[2018-09-18] VITALS (8 sets, daily range): BP systolic 106–133; BP diastolic 66–82; PULSE 60–71; RESP 18–20
[2018-09-18] MEDS: CEPHALEXIN 250 MG CAP PO SCH ×4 (00:35→17:21)
[2018-09-18] MEDS: PANTOPRAZOLE (EC) 40 MG TAB PO SCH (06:00)
--- NOTE | 2018-09-18 06:14 | CARRPT ---
DATE OF PROCEDURE: 09/17/2018 TYPE OF PROCEDURES: 1. Left heart catheterization. 2. Coronary angiography. 3. Percutaneous transluminal angioplasty with placement of Resolute drug-eluting stent x1 to the rig ht coronary posterolateral branch with 2.5 x 26 mm. 4. Percutaneous transluminal coronary angioplasty to in-stent restenosis of the right coronary arter y, mid. 5. Moderate conscious sedation. ATTENDING PHYSICIAN: Chavo Jackson MD REFERRING PHYSICIAN: Chen Alvarez MD INDICATION: Chest pain postoperatively refractory to medical therapy. TYPE OF ANESTHESIA: Conscious and local. BRIEF HISTORY AND HOSPITAL COURSE: with history of hypertension, dyslipidemia, coronary artery disease, status post prior PTCA and stent placed in 2017, who had presented for and underwent an upp er extremity arm surgery. Postoperatively, the patient had complaints of chest pain, was ruled out a nd cardiac stress test showing positive ischemia in inferolateral distribution; therefore, the patien t was referred for and presents today in order to undergo left heart catheterization to assess possib ility of significant obstructive coronary artery disease lending to symptoms of chest pain and positi ve stress test findings. DESCRIPTION OF PROCEDURE: After informed consent was obtained, the patient was brought to the [facility] cardiac catheterization lab where right radial area was prepped and draped in the usual sterile fashion. A 2% lidocaine was infiltrated to the right radial area in order to achie ve adequate anesthesia. Using the modified Seldinger technique, the radial artery was cannulated and a 6-Georgian arterial sheath was placed. A 6-Georgian JL3.5 catheter was used to cannulate the left emily n coronary ostium. With contrast injection, multiple views of the left coronary system were obtained . JL3.5 catheter was removed over guidewire and a JR4 was used to cannulate the right coronary arter ial ostium. With contrast injection, multiple views of the right coronary system were obtained. JR4 was removed over a guidewire after additionally being used to cross the LV and aortic valve and curtis ured left end ventricular diastolic pressure and pullback across the aortic valve to assess for signi ficant gradient, which there was not and removed. Subsequently at this time given the findings of si gnificant obstructive lesions of the patient for coronary artery, we moved directly into an intervent ional procedure. The patient had ACT checked returning low for interventional procedure and subseque ntly, the patient was given Angiomax bolus continuous infusion. A JR4 guide was used to cannulate th e right coronary arterial ostium. A 0.014 balanced guidewire was passed distal to lesion in the post erolateral branch. The lesion in posterolateral branch was pretreated with a 2.0 x 12 mm balloon wit h multiple inflations up to 14 to 16 atmospheres and the lesion was stented with a 2.5 x 26 mm drug-e luting stent to 14 atmospheres and post-dilated with the stent delivery system up to 16 atmospheres. Followup angiogram was obtained revealing excellent result, deployment of stent, TAWANNA 3 flow through out the vessel, no signs of complication including perforation or dissection. At this time, our atte ntion was turned to mid right coronary that had moderate in-stent restenosis. Subsequently, we used a Noncompliant initially 3.0 x 12 mm balloon to post-dilate the stent and then upsized subsequently t o 3.5 x 12 mm to post-dilate the stent up to 16 and 18 atmospheres x2. The balloon was removed. Fol lowup angiogram was obtained revealing excellent result for this balloon angioplasty of in-stent sten osis with very minimal residual stenosis, TAWANNA 3 flow throughout the vessel, no signs of complication including perforation or dissection. Subsequently at this time, the patient's interventional guide and guidewires were removed. The patie nt was given 200 mcg IC nitroglycerin and followup angiogram was obtained revealing excellent result, deployment of the first stent, TAWANNA 3 flow throughout the vessel, no signs of complication including perforation or dissection and excellent result for the balloon angioplasty of the in-stent restenoti c lesion with very minimal residual stenosis, TAWANNA 3 flow throughout the vessel, no signs of complica tion including perforation or dissection. FINDINGS: Coronary angiography: Left main is 4 mm, no significant focal stenoses. LAD proximally i s a 3 mm vessel and its mid portion has 20% stenosis and mid distal portion has 20% stenosis, the meg nt in the mid LAD which is widely patent with mild in-stent restenosis approximately 10% to 20%. Pro ximal branching diagonal is 2 mm vessel with an ostial 40% to 50% stenosis and 2 distal branching dorita gonals, each sub 2 mm vessels with no significant focal stenoses. The patient's circumflex vessel is a 3 mm vessel and in its mid distal portion has a stent in it which is widely patent with in-stent r estenosis of 10%. In mid portion, there is 30% stenosis. The circ continuation AV groove is free fr om focal significant stenosis. Proximal branching obtuse marginal is sub 2 mm vessel, covers a very short territory, no significant focal stenoses. The patient's right coronary artery proximally is a 3 mm vessel in its midportion, has a stent with in-stent restenosis approximately 60%. It is dominan t vessel and gives off a PDA and a 2 mm vessel with luminal irregularities up to approximately 30% to 40% and then a posterolateral branch 2.5 mm vessel with mid body two 80% stenosis tandem. PTCA and stent placement: Prior to PTCA and stent placement within the patient's posterolateral bran ch, there is tandem 80% stenosis. Post-PTCA and stent placement, there was no residual stenosis, KIERSTEN I 3 flow throughout the vessel, no signs of complication including perforation or dissection. In the patient's mid right coronary prior to PTCA, there is in-stent stenotic lesion up to approximately 60 %. Post-PTCA, there is residual stenosis approximately 30%. TOTAL FLUOROSCOPY TIME: 14.2 minutes. TOTAL CONTRAST: 225 mL. IMPRESSION: Single vessel obstructive coronary artery disease involving high-grade lesions in the pa tient's posterolateral branch status post successful PTCA and stent placement x1 and successful PTCA to in-stent restenotic lesion in the mid right coronary artery. RECOMMENDATIONS: In light of procedure findings at this time, we would: 1. The patient will be maintained on Brilinta 90 mg 1 tab p.o. b.i.d. for at least 6 months and aspi rin 81 mg 1 tab p.o. daily indefinitely. 2. Maximize medical management. 3. Aggressive risk factor reduction. 4. The patient will be admitted to the same day surgery center for post-cath observation and continu ed management of symptoms with probable discharge the following day. Dictated By: CHAVO MOLINA/PREMA Conf#: [id number] DID#: [id number] CC: CHEN ALVAREZ; ALTAF WOMACK MD;*EndCC*
--- NOTE | 2018-09-18 08:46 | CONS ---
Consult Date/Type/Reason Admit Date/Time Sep 13, 2018 at 16:49 Initial Consult Date Requesting Provider: JENNIFER ALVAREZ MD Date/Time of Note DATE: 09/18/18 TIME: 08:44 Subjective NO acute events - pt comfortable - no CP now - per pt, effient not approved - plavix Ok for d/c. ROS: No fever, no chills, no nausea, no vomiting, no diarrhea/constipation No recent weight changes No chest pain, no PND, no orthopnea + arm pain OK No dizziness, blurred vision No thirst, no heat or cold intolerance Objective Vitals Vital Signs Date Temp Pulse Resp B/P (MAP) Pulse Ox O2 O2 Flow FiO2 Time Delivery Rate 09/18/18 98.3 64 20 132/82 97 07:34 (99) 09/17/18 Room Air 16:00 Intake and Output 09/17/18 09/17/18 09/18/18 1515:00 23:00 07:00 IntakeIntake Total 725 ml 500 ml OutputOutput Total 1220 ml 800 ml BalanceBalance -495 ml -300 ml Exam General: WN/WD/NAD, AOx 3 HEENT: Unicetric/atraumatic/EOMI ( follows commands) NECK: JVD elevated, no thyromegaly Lymph: no lymphadenopathy HEART: regular with no S3, II/ systolic murmur at apex LUNGS: Coarse sounds ABD: soft, NT, ND, +BS : Intact Neuro: non focal SKIN: chronic changes EXT: trace edema Results/Medications Result Diagram: 09/17/18 0506 09/17/18 0529 Results 24 hrs Laboratory Tests Test 09/18/18 07:36 White Blood Count Pending Red Blood Count Pending Hemoglobin Pending Hematocrit Pending Mean Corpuscular Volume Pending Mean Corpuscular Hemoglobin Pending Mean Corpuscular Hemoglobin Concent Pending Red Cell Distribution Width Pending Platelet Count Pending Mean Platelet Volume Pending Home Meds Reported Medications Metoprolol Succinate* (Toprol XL*) 25 Mg Tab.sr.24h, 25 MG PO DAILY, #30 TAB 09/11/18 Clopidogrel Bisulfate* (Clopidogrel Bisulfate*) 75 Mg Tablet, 75 MG PO DAILY, #30 TAB 09/11/18 Atorvastatin Calcium* (Atorvastatin Calcium*) 20 Mg Tablet, 20 MG PO QHS, #30 TAB 09/11/18 Amlodipine Besylate* (Norvasc*) 5 Mg Tablet, 5 MG PO DAILY, TAB 09/11/18 Aspirin* (Aspirin* Chew) 81 Mg Tab.chew, 81 MG PO DAILY, TAB.CHEW 09/11/18 Lisinopril* (Lisinopril*) 20 Mg Tablet, 20 MG PO DAILY, #30 TAB 09/11/18 Medications Current Medications IV Flush (NS 3 ml) 3 ml PER PROTOCOL IV ; Start 09/11/18 at 16:00 Acetaminophen (Tylenol Tab) 650 mg Q6H PRN PO .PAIN 1-3 OR TEMP; Start 09/11/18 at 16:00 Acetaminophen/ Hydrocodone Bitart ([place] (5/325)) 1 tab Q6H PRN PO .MOD PAIN 4- 6 Last administered on 09/12/18at 05:33; Admin Dose 1 TAB; Start 09/11/18 at 16:00 Docusate Sodium (Colace) 100 mg Q12H PRN PO .CONSTIPATION; Start 09/11/18 at 16:00 Pantoprazole (Protonix Tab) 40 mg DAILY@06 PO Last administered on 09/18/18at 06:00; Admin Dose 40 MG; Start 09/12/18 at 06:00 Atorvastatin Calcium (Lipitor) 20 mg QHS PO Last administered on 09/17/18at 20:38; Admin Dose 20 MG; Start 09/11/18 at 21:00 Lisinopril (Zestril) 20 mg DAILY PO Last administered on 09/17/18 09:13; Admin Dose 20 MG; Start 09/12/18 at 09:00 Metoprolol Succinate (Toprol Xl) 25 mg DAILY PO Last administered on 09/17/18at 09:13; Admin Dose 25 MG; Start 09/12/18 at 09:00 Morphine Sulfate (morphine) 2 mg Q4H PRN IV SEVERE PAIN LEVEL 7-10 Last administered on 09/12/18at 15:17; Admin Dose 2 MG; Start 09/12/18 at 06:30 Cephalexin (Keflex) 250 mg Q6 PO Last administered on 09/18/18at 06:00; Admin Dose 250 MG; Start 09/12/18 at 18:00 Aspirin (Aspirin) 81 mg DAILY PO Last administered on 09/16/18at 10:13; Admin Dose 81 MG; Start 09/12/18 at 14:00 Amlodipine Besylate (Norvasc) 10 mg DAILY PO Last administered on 09/17/18at 09:13; Admin Dose 10 MG; Start 09/16/18 at 09:00 Bisacodyl (Dulcolax Supp) 10 mg DAILY PRN [place] CONSTIPATION; Start 09/15/18 at 21:30 Miscellaneous Information (* Miscellaneous Pharmacy Order) Hold all Metformin .. . ONCE XX ; Start 09/17/18 at 11:30; Stop 09/19/18 at 11:29 Ticagrelor (Brilinta) 90 mg BID PO Last administered on 09/17/18at 20:40; Admin Dose 90 MG; Start 09/17/18 at 21:00 Acetaminophen (Tylenol Tab) 650 mg Q4H PRN PO PAIN; Start 09/17/18 at 11:30 Oxycodone/ Acetaminophen (Percocet (5/ 325)) 1 tab Q4H PRN PO PAIN; Start 09/17/18 at 11:30 Morphine Sulfate (morphine) 1 mg Q1H PRN IV PAIN; Start 09/17/18 at 11:30 Zolpidem Tartrate (Ambien) 5 mg HS MAY REPEAT X 1 PRN PO INSOMNIA; Start 09/17 at 11:30 Al Hydrox/Mg Hydrox/Simethicone (Mag-Al Plus) 30 ml Q4H PRN PO GASTROINTESTINAL UPSET; Start 09/17/18 at 11:30 Ondansetron HCl (Zofran Inj) 4 mg Q4H PRN IV NAUSEA AND/OR VOMITING; Start 09/17/18 at 11:30 Assessment/Plan Hospital Course (Demo Recall) 1. Chest pain, assess for acute coronary syndrome. Negative troponins greater than 3. No chest pain at this time. lexiscan stress test positive for ischemia. Now POD#1 s/p stent x 1 to PLB/RCA and PTCA to instent RCA stenosis - effient not approved, ok for plavix for d/c. 2. Abnormal electrocardiogram with lateral T-wave inversion - no CP nw, post PCI. 3. History of PTCA and stent placement x3, most recently to 2017. On meds. 4. Hypertension- con't med therapy. 5. Dyslipidemia. 6. Status post recent fall, traumatic- defer to ortho team. RAGINI RABAGO MD Sep 18, 2018 08:46
[2018-09-18] MEDS: ASPIRIN 81 MG TAB PO SCH (08:55)
[2018-09-18] MEDS: METOPROLOL (XL) 25 MG TAB PO SCH (08:56)
[2018-09-18] MEDS: AMLODIPINE 10 MG TAB PO SCH (08:57)
[2018-09-18] MEDS: LISINOPRIL 20 MG TAB PO SCH (08:57)
[2018-09-18] MEDS: TICAGRELOR 90 MG TABLET PO SCH (09:06)
--- NOTE | 2018-09-18 13:06 | QN ---
Documentation Comment feels well dc home with either brilinta/plavix will check with piano case maker to check if Brilinta is covered JENNIFER ALVAREZ MD Sep 18, 2018 13:06
--- NOTE | 2018-09-18 13:08 | PDOCDIS ---
Discharge Instructions DIAGNOSIS Discharge Diagnosis Chest pain status post PCI of RCA CONDITION Poken9Is Patient Condition: [id number] Fair HOME CARE INSTRUCTIONS: [id number] Diet Instructions: [id number] Modified Fat ACTIVITY: [id number] Activity Restrictions: [id number] Slowly Increase Activity Rest between Activity Avoid heavy lifting FOLLOW UP/APPOINTMENTS Follow-up Plan fu With PCP in [address] Jackson in 1-2 weeks Follow-up with Ortho in 1-2 weeks Return to ER if has chest pain shortness of breath Continue with Brilinta, if Brilinta is not covered to switch to Plavix JENNIFER ALVAREZ MD Sep 18, 2018 13:08
[2018-09-18] MEDS ORDERED: TICA90TA PO (13:14)
[2018-09-18] MEDS ORDERED: CEPH250C PO (13:14)
[2018-09-18] MEDS ORDERED: AMLO-147 PO (13:14)
[2018-09-18] MEDS ORDERED: OXYC-438 PO (13:14)
--- NOTE | 2018-09-18 17:34 | RADRPT ---
Vent Rate: 63 bpm RR Interval: 0 msec AL Interval: 166 msec QRS Duration: 92 msec QT Interval: 436 msec QTC Interval: 446 msec P-R-T Mcintyre: 53 - 22 - 83 degrees Normal sinus rhythm Septal infarct , age undetermined Abnormal ECG Electronically Signed By: Nikita Jackson
== END 2018-09-18 17:40 | disposition home or self-care (01) | DRG 247 ==
LOC: E/R 12:25 → 6WM 14:56 → OBSVTOIN 09-13 16:49 → TEL 09-17 11:34
PROVIDERS: ADMIT Internal Medicine; ATTEND Internal Medicine
PROC: 4A023N7 Measurement of Cardiac Sampling and Pressure, Left Heart, Percutaneous Approach (ICD-10-PCS; 2018-09-17)
PROC: B211YZZ Fluoroscopy of Multiple Coronary Arteries using Other Contrast (ICD-10-PCS; 2018-09-17)
PROC: B215YZZ Fluoroscopy of Left Heart using Other Contrast (ICD-10-PCS; 2018-09-17)
PROC: 027034Z Dilation of Coronary Artery, One Artery with Drug-eluting Intraluminal Device, Percutaneous Approach (ICD-10-PCS; principal; 2018-09-17 11:00)
PROC: 02703ZZ Dilation of Coronary Artery, One Artery, Percutaneous Approach (ICD-10-PCS; 2018-09-17 11:00)
DX: I25.10 Atherosclerotic heart disease of native coronary artery without angina pectoris (principal); M62.82 Rhabdomyolysis; T82.855A Stenosis of coronary artery stent, initial encounter; E66.9 Obesity, unspecified; Z68.30 Body mass index [BMI] 30.0-30.9, adult; D72.829 Elevated white blood cell count, unspecified; I10 Essential (primary) hypertension; E78.5 Hyperlipidemia, unspecified; Z95.5 Presence of coronary angioplasty implant and graft; Z79.02 Long term (current) use of antithrombotics/antiplatelets; Z79.82 Long term (current) use of aspirin; Z98.890 Other specified postprocedural states; Y84.0 Cardiac catheterization as the cause of abnormal reaction of the patient, or of later complication, without mention of misadventure at the time of the procedure
CPT/HCPCS: 36415; 71045; 71275; 78452; 80048; 80061; 82550; 82553; 83735; 84100; 84484; 85025; 85378; 85610; 92928; 93005; 93017; 93306; 93458; G0378; A9500; A9505; C1725; C1887; J0583; J1644; J2250; J2270; J2785; J3010; J7030; Q9967